=== PATIENT | male | born 1980 | race Caucasian/White ===

== ENCOUNTER 2018-08-22 16:00 | Emergency (ER) | payer OTHER ==
[2018-08-22] MEDS ORDERED: ONDANSETRON 4 MG/2 ML VIAL ONE (16:43)
[2018-08-22 16:44] LABS: Absolute Lymphocytes (CBC) 1.2 K/uL (0.7-4.9); Absolute Monocytes 0.4 K/uL (0.1-1.3); Absolute Neutrophil 3.4 K/uL (1.8-8.0); Basophils % 1.2 % (0-1.3); Hematocrit 43.8 % (39.6-49.0); Lymphocytes % 23.4 % (15.3-44.8); MCH 32.6 pg (27.0-35.0); MCV 90.9 fL (80-100); MPV 11.5 fL (7.6-11.3); Monocytes % 7.5 % (3.3-12.3); RBC Red Blood Cell Count 4.82 M/uL (4.33-5.43)
[2018-08-22 16:49] LABS: Protime INR 1.11
[2018-08-22] MEDS ORDERED: FOLIC ACID 1 MG, MULTIVITAMINS INJ 10 ML, THIAMINE HCL 100 MG in NA CHLORIDE 0.9% 1,000 ML IV ONE (17:00)
[2018-08-22 17:05] LABS: BUN Blood Urea Nitrogen 13 mg/dL (7-18); Bicarbonate 27 mmol/L (21-32); Glucose Level 99 mg/dL (74-106); Potassium 3.9 mmol/L (3.5-5.1); Sodium Level 142 mmol/L (136-145)
[2018-08-22 17:06] LABS: ALT/SGPT 23 U/L (12-78); AST/SGOT 11 U/L (15-37); Albumin 4.5 g/dL (3.4-5.0); Alkaline Phosphatase 62 U/L (45-117); Bilirubin Direct 0.3 mg/dL (0-0.2); Bilirubin Total 1.1 mg/dL (0.2-1.0)
[2018-08-22 17:28] LABS: Barbiturates NEGATIVE (NEGATIVE); Benzodiazepines NEGATIVE (NEGATIVE); Cocaine NEGATIVE (NEGATIVE); METHAMPHETAM NEGATIVE (NEGATIVE); Methadone NEGATIVE (NEGATIVE); Opiates NEGATIVE (NEGATIVE); Phencyclidine NEGATIVE (NEGATIVE); THC Cannibis NEGATIVE (NEGATIVE)
[2018-08-22 17:32] LABS: Urine Blood NEGATIVE (NEG); Urine Glucose NEGATIVE (NEG); Urine Protein NEGATIVE (NEG); Urine Specific Gravity 1.025 (1.005-1.030)
--- NOTE | 2018-08-22 21:29 | EDPHYS ---
Physician Documentation [facility] Name: Jimbo Ridley Age: 37 yrs Sex: Male : 1980 Arrival Date: 08/22/2018 Time: 16:02 Bed 26 Private MD: ED Physician Vick Mcintosh HPI: 08/22 16:25 This 37 yrs old Male presents to ER via Ambulatory with complaints of cp Decreased Appetite, Nausea. 16:25 The patient presents to the emergency department with depression, over unknown cp circumstances. 16:25 Onset: The symptoms/episode began/occurred gradually, since early this year. Past cp psychiatric history: Prior diagnosis: depression, Anorexia, Psychiatric medications include: none, Primary psychiatric physician: the patient does not have a primary psychiatric physician, the patient has not had a prior suicide gesture. Associated signs and symptoms: Pertinent positives; nausea, decreased appetite, Pertinent negatives: abdominal pain, chest pain, hallucinations, headache, homicidal ideation, palpitations, paranoia, substance abuse, suicide ideation, vomiting. Severity of symptoms: in the emergency department the symptoms are unchanged despite home interventions. Historical: - Allergies: 16:05 Bactrim; hb - Home Meds: 16:05 None [Active]; hb - PMHx: 16:05 Anorexia; hb - PSHx: 16:05 None; hb - Immunization history:: Adult Immunizations up to date. - Social history:: Smoking status: Patient/guardian denies using tobacco. - Ebola Screening: : No symptoms or risks identified at this time. ROS: 16:30 Constitutional: Negative for body aches, chills, fever, poor PO intake. cp 16:30 Eyes: Negative for injury, pain, redness, and discharge. cp 16:30 ENT: Negative for drainage from ear(s), ear pain, sore throat, difficulty swallowing, difficulty handling secretions. 16:30 Cardiovascular: Negative for chest pain, edema, palpitations. 16:30 Respiratory: Negative for cough, shortness of breath, wheezing. 16:30 Abdomen/GI: Positive for nausea, Negative for abdominal pain, vomiting, diarrhea, constipation, black/tarry stool, rectal bleeding. 16:30 Neuro: Negative for altered mental status, headache, weakness. 16:30 Psych: Positive for depression, Negative for drug dependence, alcohol dependence, auditory hallucinations, visual hallucinations, suicide gesture, suicidal ideation. 16:30 All other systems are negative. Exam: 16:35 Constitutional: The patient appears in no acute distress, alert, awake, cp non-diaphoretic, non-toxic, well developed, well nourished. 16:35 Head/Face: Normocephalic, atraumatic. cp 16:35 Eyes: Pupils equal round and reactive to light, extra-ocular motions intact. Lids and lashes normal. Conjunctiva and sclera are non-icteric and not injected. Cornea within normal limits. Periorbital areas with no swelling, redness, or edema. ENT: Nares patent. No nasal discharge, no septal abnormalities noted. Tympanic membranes are normal and external auditory canals are clear. Oropharynx with no redness, swelling, or masses, exudates, or evidence of obstruction, uvula midline. Mucous membranes moist. Chest/axilla: Normal chest wall appearance and motion. Nontender with no deformity. No lesions are appreciated. Cardiovascular: Regular rate and rhythm with a normal S1 and S2. No gallops, murmurs, or rubs. Normal PMI, no JVD. No pulse deficits. Respiratory: Lungs have equal breath sounds bilaterally, clear to auscultation and percussion. No rales, rhonchi or wheezes noted. No increased work of breathing, no retractions or nasal flaring. Abdomen/GI: Soft, non-tender, with normal bowel sounds. No distension or tympany. No guarding or rebound. No evidence of tenderness throughout. Skin: Warm, dry with normal turgor. Normal color with no rashes, no lesions, and no evidence of cellulitis. 16:35 Neuro: Orientation: to person, place \T\ time. Mentation: is normal, Cerebellar function: is grossly normal, Motor: moves all fours, strength is normal, Sensation: is normal. 16:35 Psych: Behavior/mood is cooperative, depressed, Affect is flat, Patient has no thoughts/intents to harm self or others. Judgement / Insight is normal. Delusions/hallucinations are not present. 16:55 ECG was reviewed by the Attending Physician. cp Vital Signs: 16:02 BP 114 / 87; Pulse 75; Resp 16; Temp 98.2; Pulse Ox 100% on R/A; Pain 0/10; hb 18:27 BP 107 / 82; Pulse 63; Resp 16; Pulse Ox 99% on R/A; kr2 20:07 BP 102 / 74; Pulse 65; Resp 16; Pulse Ox 100% ; kr2 21:54 BP 112 / 67; Pulse 65; Resp 17; Pulse Ox 100% ; kr2 MDM: 16:02 Patient medically screened. cp 17:00 Differential diagnosis: drug withdrawal. acute psychotic break, depression, psychosis cp secondary to non-compliance. 21:27 ED course: VSS. Patient evaluated by [facility] and felt to be stable for discharge to home with outpatient psych f/u. 21:28 Data reviewed: vital signs, nurses notes, lab test result(s), EKG, and as a result, I cp will discharge patient. 21:28 Counseling: I had a detailed discussion with the patient and/or guardian regarding: the cp historical points, exam findings, and any diagnostic results supporting the discharge/admit diagnosis, lab results, the need for outpatient follow up, for definitive care, a psychiatrist, to return to the emergency department if symptoms worsen or persist or if there are any questions or concerns that arise at home. 08/22 16:22 Order name: Acetaminophen; Complete Time: 17:27 cp 08/22 16:22 Order name: Basic Metabolic Panel 08/22 16:22 Order name: CBC with Diff; Complete Time: 17:27 cp 08/22 17:28 Interpretation: Normal except: PLT 144; MPV 11.5. 08/22 16:22 Order name: ETOH Level; Complete Time: 17:27 cp 08/22 16:22 Order name: Hepatic Function; Complete Time: 17:27 08/22 17:28 Interpretation: Normal except: AST 11; BILIT 1.1; BILID 0.3. 08/22 16:22 Order name: PT-INR; Complete Time: 17:27 cp 08/22 16:22 Order name: Ptt, Activated; Complete Time: 17:27 cp 08/22 16:22 Order name: Salicylate; Complete Time: 17:27 cp 08/22 16:22 Order name: Urine Drug Screen; Complete Time: 17:39 cp 08/22 17:39 Interpretation: Reviewed. 08/22 16:22 Order name: EKG; Complete Time: 16:23 08/22 16:23 Order name: Basic Metabolic Panel; Complete Time: 17:27 EDMS 08/22 17:28 Interpretation: Normal except: CL 108; GFR 84. cp 08/22 16:52 Order name: Urine Dipstick--Ancillary (enter results); Complete Time: 17:39 eb 08/22 16:22 Order name: EKG - Nurse/Tech; Complete Time: 16:54 cp 08/22 16:22 Order name: IV Saline Lock; Complete Time: 16:40 cp 08/22 16:22 Order name: Labs collected and sent; Complete Time: 16:40 cp 08/22 16:22 Order name: Urine Dipstick-Ancillary (obtain specimen); Complete Time: 16:41 cp EC:55 Rate is 58 beats/min. Rhythm is regular. OH interval is normal. QRS interval is normal. cp QT interval is normal. Interpreted by me. Reviewed by me. Administered Medications: Discontinued: Banana Bag - (NS 0.9% 1000 ml, foLIC Acid 1 mg, Thiamine 100 mg, Multivitamin 1 amp) IV at 200 calculated rate once 16:48 Drug: Zofran 4 mg Route: IVP; Site: right antecubital; kr2 17:26 Follow up: Response: No adverse reaction; Nausea is decreased kr2 17:26 Drug: Banana Bag - (NS 0.9% 1000 ml, foLIC Acid 1 mg, Thiamine 100 mg, Multivitamin 1 kr2 amp) Route: IV; Rate: 200 calculated rate; Site: right antecubital; 21:55 Follow up: Response: No adverse reaction; IV Status: Completed infusion kr2 Disposition: 08/23 06:19 Co-signature as Attending Physician, Vick Mcintosh MD. rn Disposition: 08/22/18 21:29 Discharged to Home. Impression: Major depressive disorder, recurrent. - Condition is Stable. - Discharge Instructions: Major Depressive Disorder. - Medication Reconciliation Form, Thank You Letter, Antibiotic Education, Prescription Opioid Use form. - Follow up: Private Physician; When: 1 - 2 days; Reason: Recheck today's complaints. - Problem is an ongoing problem. - Symptoms are unchanged. Signatures: Dispatcher [employer] EDPR Vick Mcintosh MD MD rn Page, Corey, PA PA cp Baxter, Heather, RN RN hb Reaves, Karey, RN RN kr2 Corrections: (The following items were deleted from the chart) 08/22 21:29 21:29 08/22/2018 21:29 Discharged to Home. Impression: Depression. Condition is Stable. cp Forms are Medication Reconciliation Form, Thank You Letter, Antibiotic Education, Prescription Opioid Use. Follow up: Private Physician; When: 1 - 2 days; Reason: Recheck today's complaints. Problem is an ongoing problem. Symptoms are unchanged. cp 21:58 21:29 08/22/2018 21:29 Discharged to Home. Impression: Major depressive disorder, kr2 recurrent. Condition is Stable. Discharge Instructions: Major Depressive Disorder. Forms are Medication Reconciliation Form, Thank You Letter, Antibiotic Education, Prescription Opioid Use. Follow up: Private Physician; When: 1 - 2 days; Reason: Recheck today's complaints. Problem is an ongoing problem. Symptoms are unchanged. cp
--- NOTE | 2018-08-22 21:29 | ER ---
Nurse's Notes [facility] Name: Jimbo Ridley Age: 37 yrs Sex: Male : 1980 Arrival Date: 08/22/2018 Time: 16:02 Bed 26 Private MD: Diagnosis: Major depressive disorder, recurrent Presentation: 08/22 16:02 Presenting complaint: EMS states: Mother called EMS for decreased appetite. Pt reports hb nausea, dry heaves. Hx anorexia. Transition of care: patient was not received from another setting of care. Onset of symptoms was August 22, 2018. Risk Assessment: Do you want to hurt yourself or someone else? Patient reports no desire to harm self or others. Care prior to arrival: None. 16:02 Method Of Arrival: Ambulatory hb 16:02 Acuity: ARIANNE 3 hb 16:49 Initial Sepsis Screen: Does the patient meet any 2 criteria? No. Patient's initial kr2 sepsis screen is negative. Does the patient have a suspected source of infection? No. Patient's initial sepsis screen is negative. Triage Assessment: 16:49 General: Appears in no apparent distress. comfortable, slender, well groomed, Behavior kr2 is calm, cooperative. Pain: Denies pain. Historical: - Allergies: 16:05 Bactrim; hb - Home Meds: 16:05 None [Active]; hb - PMHx: 16:05 Anorexia; hb - PSHx: 16:05 None; hb - Immunization history:: Adult Immunizations up to date. - Social history:: Smoking status: Patient/guardian denies using tobacco. - Ebola Screening: : No symptoms or risks identified at this time. Screenin:06 Abuse screen: Denies threats or abuse. Denies injuries from another. Nutritional hb screening: No deficits noted. Tuberculosis screening: No symptoms or risk factors identified. Fall Risk None identified. Assessment: 16:50 General: Appears in no apparent distress. comfortable, slender, well groomed, Behavior kr2 is calm, cooperative. Pain: Denies pain. Neuro: Level of Consciousness is awake, alert, obeys commands, Oriented to person, place, time, situation, Blade Balancer are equal bilaterally Moves all extremities. Gait is steady, Speech is normal, Facial symmetry appears normal, Pupils are PERRLA, Intact mild tremor noted to bilateral hands. Cardiovascular: Capillary refill < 3 seconds in bilateral fingers Patient's skin is warm and dry. Respiratory: Airway is patent Respiratory effort is even, unlabored, Respiratory pattern is regular, symmetrical. GI: Abdomen is flat, non-distended, Reports anorexia, nausea, Patient currently denies vomiting. : Urine is clear. EENT: Nares are clear bilaterally Oral mucosa is moist. Derm: Skin is intact, with poor turgor Skin is pink, warm \T\ dry. Musculoskeletal: 18:26 Reassessment: Patient appears in no apparent distress at this time. Patient and/or kr2 family updated on plan of care and expected duration. Pain level reassessed. Patient is alert, oriented x 3, equal unlabored respirations, skin warm/dry/pink. Patient denies suicidal or homicidal ideation Patient denies pain at this time. 19:30 Reassessment: Patient appears in no apparent distress at this time. Patient and/or kr2 family updated on plan of care and expected duration. Pain level reassessed. Patient is alert, oriented x 3, equal unlabored respirations, skin warm/dry/pink. Patient denies pain at this time. 20:07 Reassessment: Patient appears in no apparent distress at this time. Patient and/or kr2 family updated on plan of care and expected duration. Pain level reassessed. Patient is alert, oriented x 3, equal unlabored respirations, skin warm/dry/pink. Patient denies pain at this time. 21:00 Reassessment: Patient appears in no apparent distress at this time. Patient and/or kr2 family updated on plan of care and expected duration. Pain level reassessed. Patient is alert, oriented x 3, equal unlabored respirations, skin warm/dry/pink. Game Breeding Farm Manager from [facility] here to evaluate patient. 21:53 Reassessment: Patient appears in no apparent distress at this time. Patient and/or kr2 family updated on plan of care and expected duration. Pain level reassessed. Patient is alert, oriented x 3, equal unlabored respirations, skin warm/dry/pink. Patient denies pain at this time. Vital Signs: 16:02 BP 114 / 87; Pulse 75; Resp 16; Temp 98.2; Pulse Ox 100% on R/A; Pain 0/10; hb 18:27 BP 107 / 82; Pulse 63; Resp 16; Pulse Ox 99% on R/A; kr2 20:07 BP 102 / 74; Pulse 65; Resp 16; Pulse Ox 100% ; kr2 21:54 BP 112 / 67; Pulse 65; Resp 17; Pulse Ox 100% ; kr2 ED Course: 16:02 Patient arrived in ED. hb 16:02 Harris Estrada PA is PHCP. cp 16:02 Vick Mcintosh MD is Attending Physician. cp 16:03 Triage completed. hb 16:03 Arm band placed on right wrist. hb 16:35 Inserted saline lock: 20 gauge in left antecubital area, using aseptic technique. Blood kr2 collected. 16:37 Krista Sultana, RN is Primary Nurse. kr2 16:49 Patient has correct armband on for positive identification. Bed in low position. Call kr2 light in reach. Side rails up X 1. Adult w/ patient. marine habitat resource specialist on. Pulse ox on. NIBP on. Door closed. Warm blanket given. Head of bed elevated. 16:50 Urine collected: clean catch specimen, clear. kr2 16:57 EKG done, by garage door technician. reviewed by Harris STREETER. sm3 17:47 called and spoke with Neelam at the [facility]. She will page out a screener to eb come evaluate the patient. 18:23 Sergio from the [facility] called said she would be here between 1999 and 2044 eb to screen the patient. 18:44 Basic Metabolic Panel Sent. jp3 21:56 No provider procedures requiring assistance completed. IV discontinued, intact, kr2 bleeding controlled, No redness/swelling at site. Pressure dressing applied. Administered Medications: Discontinued: Banana Bag - (NS 0.9% 1000 ml, foLIC Acid 1 mg, Thiamine 100 mg, Multivitamin 1 amp) IV at 200 calculated rate once 16:48 Drug: Zofran 4 mg Route: IVP; Site: right antecubital; kr2 17:26 Follow up: Response: No adverse reaction; Nausea is decreased kr2 17:26 Drug: Banana Bag - (NS 0.9% 1000 ml, foLIC Acid 1 mg, Thiamine 100 mg, Multivitamin 1 kr2 amp) Route: IV; Rate: 200 calculated rate; Site: right antecubital; 21:55 Follow up: Response: No adverse reaction; IV Status: Completed infusion kr2 Outcome: 21:29 Discharge ordered by . cp 21:56 Discharged to home ambulatory, with family. kr2 21:56 Condition: good 21:56 Discharge instructions given to patient, family, Instructed on discharge instructions, follow up and referral plans. Demonstrated understanding of instructions, follow-up care. 21:58 Patient left the ED. kr2 Signatures: Harris Estrada PA PA cp Baxter, Heather, RN RN Krista Sultana RN RN kr2 Ca Ortiz Shakira 3 David Pike jp3 Corrections: (The following items were deleted from the chart) 21:57 18:26 Reassessment: Patient appears in no apparent distress at this time. Patient kr2 and/or family updated on plan of care and expected duration. Pain level reassessed. Patient is alert, oriented x 3, equal unlabored respirations, skin warm/dry/pink. Patient denies pain at this time. kr2
--- NOTE | 2018-08-23 07:30 | EKG ---
Test Date: 2018-08-22 Test Time: 16:50:00 Clothespin Machine Operator: TAMIA MEASUREMENT RESULTS: Intervals: Rate: 58 MT: 184 QRSD: 92 QT: 398 QTc: 390 [place]: P: 40 MT: 184 QRS: 74 T: 56 INTERPRETIVE STATEMENTS: Sinus bradycardia Otherwise normal ECG Compared to ECG 08/25/2011 23:37:14 First degree AV block no longer present Electronically Signed On 08-23-18 07:27:46 CDT by Brett Mcdaniels
== END 2018-08-22 21:58 | disposition home or self-care (01) ==
LOC: ER 16:00
DX: F33.9 Major depressive disorder, recurrent, unspecified (principal); Z88.1 Allergy status to other antibiotic agents
CPT/HCPCS: 36415; 80048; 80076; 80307; 80320; 80329; 81003; 85025; 85610; 85730; 93005; 96365; 96366; 96375; 99284; J2405; J3411; J7030

== ENCOUNTER 2018-09-09 14:24 | Observation (INO) | payer OTHER ==
[2018-09-09] MEDS ORDERED: NA CHLORIDE 0.9% 1,000 ML ONE ×2 (15:32→17:03)
[2018-09-09] MEDS ORDERED: ONDANSETRON 4 MG/2 ML VIAL ONE (15:32)
[2018-09-09 16:04] LABS: Albumin 4.5 g/dL (3.4-5.0); Bilirubin Direct 0.3 mg/dL (0-0.2); Bilirubin Total 1.3 mg/dL (0.2-1.0); Protein, Total 7.1 g/dL (6.4-8.2)
[2018-09-09 16:29] LABS: Magnesium 2.1 mg/dL (1.8-2.4); Phosphorus 3.4 mg/dL (2.5-4.9)
[2018-09-09 16:41] LABS: Absolute Monocytes 0.6 K/uL (0.1-1.3); Absolute Neutrophil 7.2 K/uL (1.8-8.0); Basophils % 0.6 % (0-1.3); Eosinophils % 2.8 % (0-4.4); Hematocrit 46.5 % (39.6-49.0); Lymphocytes % 10.8 % (15.3-44.8); MCH 32.3 pg (27.0-35.0); MCV 91.7 fL (80-100); MPV 11.8 fL (7.6-11.3); Monocytes % 6.8 % (3.3-12.3); RBC Red Blood Cell Count 5.06 M/uL (4.33-5.43)
[2018-09-09 16:53] LABS: Urine Blood NEGATIVE (NEG); Urine Glucose NEGATIVE (NEG); Urine Protein TRACE (NEG); Urine Specific Gravity >1.030 (1.005-1.030)
[2018-09-09 16:54] LABS: Urine White Blood Cell Casts OK
[2018-09-09 16:55] LABS: Blood Morphology Comment NOT SEEN (NOT SEEN); Platelet Estimate ADEQ; Platelets, Giant FEW
--- NOTE | 2018-09-09 16:59 | EDPHYS ---
Physician Documentation [facility] Name: Jimbo Ridley Age: 37 yrs Sex: Male : 1980 Arrival Date: 09/09/2018 Time: 14:32 Bed 19 Private MD: Gee Coleman ED Physician Oli Watts HPI: 09/09 16:21 This 37 yrs old Male presents to ER via Wheelchair with complaints of nausea kb and vomiting. 16:21 The patient presents to the emergency department with nausea, vomiting. Possible kb causes: anorexia. 16:24 Onset: The symptoms/episode began/occurred months ago. The symptoms are aggravated by kb food , The symptoms are alleviated by nothing. Associated signs and symptoms: Pertinent positives: nausea, vomiting, Pertinent negatives: abdominal pain, anorexia, belching, constipation, diarrhea, dysuria, fever, flatulence, GI bleeding, hematuria. Severity of symptoms: At their worst the symptoms were moderate in the emergency department the symptoms are unchanged. The patient has experienced similar episodes in the past. The patient has been recently seen at the [facility] Emergency Department, last month, for similar complaints. Pt has history of anorexia. Reports he has been unable to eat for months. Has been trying to eat solid foods, but is unable to keep them done. Reports he is now weak and unable to walk well. Has been wearing adult briefs because he is unable to get up to the bathroom easily. Was seen by Dr Matos today who consulted with Dr Coleman and was told to come to ER for possible admission. Historical: - Allergies: 14:34 Bactrim; sv - PMHx: 14:34 ANOREXIA; sv - PSHx: 14:34 None; sv - Immunization history:: Adult Immunizations up to date. - Social history:: Smoking status: Patient/guardian denies using tobacco. - Ebola Screening: : No symptoms or risks identified at this time. ROS: 16:24 Constitutional: Negative for fever, chills, and weight loss, ENT: Negative for injury, kb pain, and discharge, Neck: Negative for injury, pain, and swelling, Cardiovascular: Negative for chest pain, palpitations, and edema, Respiratory: Negative for shortness of breath, cough, wheezing, and pleuritic chest pain, Back: Negative for injury and pain, : Negative for injury, bleeding, discharge, and swelling, MS/Extremity: Negative for injury and deformity, Skin: Negative for injury, rash, and discoloration, Neuro: Negative for headache, weakness, numbness, tingling, and seizure. 16:24 Abdomen/GI: Positive for nausea and vomiting, Negative for abdominal pain, diarrhea, constipation, abdominal cramps, abdominal distension, anorexia. Exam: 16:36 Head/Face: Normocephalic, atraumatic. ENT: Nares patent. No nasal discharge, no kb septal abnormalities noted. Tympanic membranes are normal and external auditory canals are clear. Oropharynx with no redness, swelling, or masses, exudates, or evidence of obstruction, uvula midline. Mucous membranes moist. Neck: Trachea midline, no thyromegaly or masses palpated, and no cervical lymphadenopathy. Supple, full range of motion without nuchal rigidity, or vertebral point tenderness. No Meningismus. Chest/axilla: Normal chest wall appearance and motion. Nontender with no deformity. No lesions are appreciated. Cardiovascular: Regular rate and rhythm with a normal S1 and S2. No gallops, murmurs, or rubs. Normal PMI, no JVD. No pulse deficits. Respiratory: Lungs have equal breath sounds bilaterally, clear to auscultation and percussion. No rales, rhonchi or wheezes noted. No increased work of breathing, no retractions or nasal flaring. Abdomen/GI: Soft, non-tender, with normal bowel sounds. No distension or tympany. No guarding or rebound. No evidence of tenderness throughout. Back: No spinal tenderness. No costovertebral tenderness. Full range of motion. Skin: Warm, dry with normal turgor. Normal color with no rashes, no lesions, and no evidence of cellulitis. MS/ Extremity: Pulses equal, no cyanosis. Neurovascular intact. Full, normal range of motion. Neuro: Awake and alert, GCS 15, oriented to person, place, time, and situation. Cranial nerves II-XII grossly intact. Motor strength 5/5 in all extremities. Sensory grossly intact. Cerebellar exam normal. Normal gait. 16:36 Constitutional: The patient appears alert, awake, emaciated. Vital Signs: 14:34 BP 102 / 86; Pulse 86; Resp 16; Temp 99.2; Pulse Ox 99% ; Weight 63.96 kg; Height 6 ft. sv 1 in. (185.42 cm); Pain 0/10; 15:52 BP 103 / 92; Pulse 71; Resp 17; Pulse Ox 99% on R/A; tw2 16:50 BP 101 / 71; Pulse 64; Resp 17; Pulse Ox 99% on R/A; tw2 17:53 BP 103 / 76; Pulse 74; Resp 17; Pulse Ox 98% on R/A; tw2 18:38 BP 101 / 74; Pulse 73; Resp 17; Pulse Ox 98% on R/A; tw2 19:30 BP 101 / 69; Pulse 67; Resp 19 S; Temp 98.8(O); Pulse Ox 97% on R/A; cc3 14:34 Body Mass Index 18.60 (63.96 kg, 185.42 cm) sv MDM: 14:58 Patient medically screened. kb 16:36 Data reviewed: vital signs, nurses notes. Data interpreted: Pulse oximetry: on room air kb is 99 %. Interpretation: normal. 16:57 Counseling: I had a detailed discussion with the patient and/or guardian regarding: the kb historical points, exam findings, and any diagnostic results supporting the discharge/admit diagnosis, lab results, the need for further work-up and treatment in the hospital. Physician consultation: Gee Coleman MD was contacted at 16:58, regarding admission, to the medical/surgical unit. patient's condition, and will see patient in inpatient room. 09/09 15:06 Order name: Basic Metabolic Panel; Complete Time: 16:07 kb 09/09 15:06 Order name: CBC with Diff; Complete Time: 16:56 kb 09/09 15:06 Order name: Hepatic Function; Complete Time: 16:07 kb 09/09 15:06 Order name: Lipase; Complete Time: 16:07 kb 09/09 15:26 Order name: Magnesium; Complete Time: 16:32 kb 09/09 15:26 Order name: Phosphorus; Complete Time: 16:32 kb 09/09 16:44 Order name: CBC Smear Scan; Complete Time: 16:56 EDMS 09/09 16:46 Order name: Urine Dipstick--Ancillary (enter results); Complete Time: 16:54 bd 09/09 16:53 Order name: Folic Acid,Serum (folate); Complete Time: 17:54 kb 09/09 16:53 Order name: B12; Complete Time: 17:54 kb 09/09 16:53 Order name: TSH; Complete Time: 17:54 kb 09/09 15:06 Order name: IV Saline Lock; Complete Time: 15:51 kb 09/09 15:06 Order name: Labs collected and sent; Complete Time: 15:51 kb 09/09 16:08 Order name: Urine Dipstick-Ancillary (obtain specimen); Complete Time: 16:49 kb Administered Medications: 15:30 Drug: Zofran 4 mg Route: IVP; Site: right antecubital; tw2 16:49 Follow up: Response: No adverse reaction; Nausea is decreased tw2 15:32 Drug: NS 0.9% 1000 ml Route: IV; Rate: 1000 ml; Site: right antecubital; tw2 16:10 Follow up: Response: No adverse reaction; IV Status: Completed infusion; IV Intake: tw2 1000ml 17:02 Drug: NS 0.9% 1000 ml Route: IV; Rate: 125 ml/hr; Site: right antecubital; tw2 19:00 Follow up: IV Status: Infusion continued upon admission tw2 Disposition: 18:49 Co-signature as Attending Physician, Oli Watts MD available for consultation at ps1 all times. . Disposition: 09/09/18 16:58 Hospitalization ordered by Gee Coleman for Observation. Preliminary diagnosis are Dehydration, Weakness. - Bed requested for Telemetry/MedSurg (observation). - Status is Observation. cc3 - Condition is Stable. - Problem is an ongoing problem. - Symptoms are unchanged. UTI on Admission? No Signatures: Dispatcher [employer] EDIA Apple Ortiz, JOSE-Sergio METAL TEMPLATE MAKER-Khadijah Hall RN Marybeth Villagomez RN RN dw Wise, Tara, RN RN tw2 Oli Watts MD MD [facility] Chelsey Day cc3 Corrections: (The following items were deleted from the chart) 17:47 16:58 Hospitalization Ordered by Gee Coleman MD for Observation. Preliminary diagnosis dw is Dehydration; Weakness. Bed requested for Telemetry/MedSurg (observation). Status is Observation. Condition is Stable. Problem is an ongoing problem. Symptoms are unchanged. UTI on Admission? No. kb 20:02 17:47 09/09/2018 16:58 Hospitalization Ordered by Gee Coleman MD for Observation. cc3 Preliminary diagnosis is Dehydration; Weakness. Bed requested for Telemetry/MedSurg (observation). Status is Observation. Condition is Stable. Problem is an ongoing problem. Symptoms are unchanged. UTI on Admission? No. dw
--- NOTE | 2018-09-09 16:59 | ER ---
Nurse's Notes [facility] Name: Jimbo Ridley Age: 37 yrs Sex: Male : 1980 Arrival Date: 09/09/2018 Time: 14:32 Bed 19 Private MD: Gee Coleman Diagnosis: Dehydration;Weakness Presentation: 09/09 14:32 Presenting complaint: Patient states: not able to tolerate food or fluids x several sv weeks. "They think I'm dehydrated.". Transition of care: patient was not received from another setting of care. Onset of symptoms is unknown. Care prior to arrival: None. 14:32 Method Of Arrival: Wheelchair sv 14:32 Acuity: ARIANNE 3 sv 14:42 Risk Assessment: Do you want to hurt yourself or someone else? Patient reports no tw2 desire to harm self or others. Initial Sepsis Screen: Does the patient meet any 2 criteria? No. Patient's initial sepsis screen is negative. Does the patient have a suspected source of infection? No. Patient's initial sepsis screen is negative. Triage Assessment: 14:35 General: Appears uncomfortable, ill, slender, malnourished, Behavior is calm, sv cooperative. Pain: Denies pain. Neuro: Level of Consciousness is awake, alert, obeys commands, Oriented to person, place, time, situation, Moves all extremities. Full function. Respiratory: Respiratory effort is even, unlabored, Respiratory pattern is regular, symmetrical. Historical: - Allergies: 14:34 Bactrim; sv - PMHx: 14:34 ANOREXIA; sv - PSHx: 14:34 None; sv - Immunization history:: Adult Immunizations up to date. - Social history:: Smoking status: Patient/guardian denies using tobacco. - Ebola Screening: : No symptoms or risks identified at this time. Screenin:42 Abuse screen: Denies threats or abuse. Nutritional screening: Has had N/V for 3 or more tw2 days. Tuberculosis screening: No symptoms or risk factors identified. Fall Risk None identified. Assessment: 14:40 General: Appears well groomed, emaciated, Behavior is calm, cooperative, appropriate tw2 for age. Neuro: Level of Consciousness is awake, alert, obeys commands, Oriented to person, place, time, situation. Cardiovascular: Heart tones S1 S2 Patient's skin is warm and dry. Respiratory: Airway is patent Respiratory effort is even, unlabored, Respiratory pattern is regular, symmetrical, Breath sounds are clear bilaterally. GI: Abdomen is flat, Bowel sounds present X 4 quads. Reports intolerance of fluids, intolerance of food, nausea. : No signs and/or symptoms were reported regarding the genitourinary system. EENT: No signs and/or symptoms were reported regarding the EENT system. EENT: Eyes redness noted to b/l eyes. Derm: excoriation noted to b/l dorsum of fingers. Musculoskeletal: Range of motion: intact in all extremities. 15:52 Reassessment: Patient appears in no apparent distress at this time. No changes from tw2 previously documented assessment. Patient and/or family updated on plan of care and expected duration. Pain level reassessed. Patient is alert, oriented x 3, equal unlabored respirations, skin warm/dry/pink. 16:15 Reassessment: pts mother states "he has an eating disorder and has been starving tw2 himself, and he hasnt been wanting to eat, but now he says he wants to eat but he is just so nauseous", provider notified and conversation with JOSE Man at nurses station, Dr. Coleman is PCP. 16:50 Reassessment: Patient appears in no apparent distress at this time. No changes from tw2 previously documented assessment. Patient and/or family updated on plan of care and expected duration. Pain level reassessed. Patient is alert, oriented x 3, equal unlabored respirations, skin warm/dry/pink. pt ambulated behind w/c around nurses station at this time states "i just feel weak", provider notified mother states once pt is in room "he is even wearing a depends, we have to help bathe him". 18:38 Reassessment: Patient appears in no apparent distress at this time. No changes from tw2 previously documented assessment. Patient and/or family updated on plan of care and expected duration. Pain level reassessed. Patient is alert, oriented x 3, equal unlabored respirations, skin warm/dry/pink. 19:15 Reassessment: Patient appears in no apparent distress at this time. Patient and/or cc3 family updated on plan of care and expected duration. Pain level reassessed. Patient is alert, oriented x 3, equal unlabored respirations, skin warm/dry/pink. Received this male patient for admission in room 222 as a case of Dehydration. With IV cannula gauge 20 at the right ACV with ongoing IVF of NS 1liter at 125 mL/hr infusing well. 19:50 Reassessment: Report handed over to RN Joaquina Plummer for continuity of care and was told cc3 that they will change the patient's room to room 220 as per their charge nurse Gaby. 20:00 Reassessment: Patient appears in no apparent distress at this time. Patient and/or cc3 family updated on plan of care and expected duration. Pain level reassessed. Patient is alert, oriented x 3, equal unlabored respirations, skin warm/dry/pink. Patient left ER vitally stable by wheelchair escorted by robotics testing technician Jewish and his mother. Vital Signs: 14:34 BP 102 / 86; Pulse 86; Resp 16; Temp 99.2; Pulse Ox 99% ; Weight 63.96 kg; Height 6 ft. sv 1 in. (185.42 cm); Pain 0/10; 15:52 BP 103 / 92; Pulse 71; Resp 17; Pulse Ox 99% on R/A; tw2 16:50 BP 101 / 71; Pulse 64; Resp 17; Pulse Ox 99% on R/A; tw2 17:53 BP 103 / 76; Pulse 74; Resp 17; Pulse Ox 98% on R/A; tw2 18:38 BP 101 / 74; Pulse 73; Resp 17; Pulse Ox 98% on R/A; tw2 19:30 BP 101 / 69; Pulse 67; Resp 19 S; Temp 98.8(O); Pulse Ox 97% on R/A; cc3 14:34 Body Mass Index 18.60 (63.96 kg, 185.42 cm) sv ED Course: 14:32 Patient arrived in ED. sb2 14:32 Gee Coleman MD is Private Physician. sb2 14:33 Triage completed. sv 14:35 Arm band placed on. sv 14:41 Malena Salmeron, RN is Primary Nurse. tw2 14:42 Bed in low position. Call light in reach. Adult w/ patient. equipment monitor phototypesetting on. Pulse tw2 ox on. NIBP on. 14:57 Apple Ortiz FNP-C is PHCP. kb 14:57 Oli Watts MD is Attending Physician. kb 15:30 Inserted saline lock: 20 gauge in right antecubital area, using aseptic technique. tw2 Blood collected. 16:58 Gee Coleman MD is Hospitalizing Provider. kb 18:59 Report given to Deonte Barbosa. tw2 19:50 No provider procedures requiring assistance completed. Patient admitted, IV remains in cc3 place. Administered Medications: 15:30 Drug: Zofran 4 mg Route: IVP; Site: right antecubital; tw2 16:49 Follow up: Response: No adverse reaction; Nausea is decreased tw2 15:32 Drug: NS 0.9% 1000 ml Route: IV; Rate: 1000 ml; Site: right antecubital; tw2 16:10 Follow up: Response: No adverse reaction; IV Status: Completed infusion; IV Intake: tw2 1000ml 17:02 Drug: NS 0.9% 1000 ml Route: IV; Rate: 125 ml/hr; Site: right antecubital; tw2 19:00 Follow up: IV Status: Infusion continued upon admission tw2 Intake: 16:10 IV: 1000ml; Total: 1000ml. tw2 Outcome: 16:58 Decision to Hospitalize by Provider. kb 19:50 Admitted to Med/surg accompanied by tech, family with patient, via wheelchair, room cc3 220, with chart, Report called to DEONTE Plummer 19:50 Condition: stable 19:50 Instructed on the need for admit, Demonstrated understanding of instructions. 20:02 Patient left the ED. cc3 Signatures: Apple Ortiz, CLAY GARCIA-Khadijah Hall RN RN sv Wise, Tara, RN RN 2 Candice Hunt Chelsey Flores cc3
[2018-09-09 17:43] LABS: Folic Acid, (Folate) 18.8 ng/mL (3.1-17.5); Thyroid Stimulating Hormone 1.8 uIU/mL (0.360-3.740)
[2018-09-09] MEDS ORDERED: SODIUM CHLORIDE 0.9% 10ML INJ IV PRN (20:52)
[2018-09-09] MEDS ORDERED: ONDANSETRON 4 MG/2 ML VIAL IV PRN (21:19)
[2018-09-09] MEDS ORDERED: ACETAMINOPHEN 500 MG TAB PO PRN (21:19)
[2018-09-09] MEDS: PANTOPRAZOLE 40 MG INJ IVP SCH (22:35)
[2018-09-09] MEDS: NA CHLORIDE 0.9% 1,000 ML IV SCH (22:35)
[2018-09-10] MEDS: NA CHLORIDE 0.9% 1,000 ML IV SCH ×3 (04:29→20:52)
[2018-09-10 05:56] LABS: Potassium 4.4 mmol/L (3.5-5.1)
[2018-09-10 06:17] LABS: Absolute Lymphocytes (CBC) 1.3 K/uL (0.7-4.9); Absolute Monocytes 0.6 K/uL (0.1-1.3); Absolute Neutrophil 4.1 K/uL (1.8-8.0); Basophils % 1.2 % (0-1.3); Eosinophils % 6.3 % (0-4.4); Hematocrit 37.5 % (39.6-49.0); Lymphocytes % 20.3 % (15.3-44.8); MCV 91.5 fL (80-100); MPV 11.6 fL (7.6-11.3); Monocytes % 8.9 % (3.3-12.3)
--- NOTE | 2018-09-10 08:30 | RAD REPORT ---
EXAM DESCRIPTION: US - Abdomen Exam Complete - 09/10/2018 7:32 am CLINICAL HISTORY: Abdominal pain/ vomiting COMPARISON: 2011 FINDINGS: The liver has a normal echotexture. A gallstone is not seen. The gallbladder wall is not thickened. The biliary tree is normal caliber. The pancreas is normal in size and echotexture The right kidney measures 10 centimeters with a normal echotexture. The left kidney measures 11 centimeters with a normal echotexture. The spleen measures 9 centimeters. The abdominal aorta and inferior vena cava appear unremarkable IMPRESSION: Unremarkable exam
[2018-09-10] MEDS: PANTOPRAZOLE 40 MG INJ IVP SCH ×2 (09:54→20:52)
--- NOTE | 2018-09-10 15:15 | RAD REPORT ---
EXAM DESCRIPTION: NM - Hepatobiliary System Imagin - 09/10/2018 3:09 pm CLINICAL HISTORY: nausea, vomiting COMPARISON: Abdomen Exam Complete dated 09/10/2018 TECHNIQUE: The patient was administered 6.5 mCi Tc99m Choletec. Imaging of the right upper quadrant was performed initially for up to 60 minutes. Gallbladder ejection fraction determination was then performed utilizing 8 ounce of ice cream. FINDINGS: Normal hepatic uptake and excretion with appropriate clearance of background blood pool ac tivity. Normal visualization of biliary and small bowel activity. Gallbladder visualizes within normal time limits. The calculated ejection fraction is 43% (normal gre ater than 35%). 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 No delay in visualization of the gallb ladder, biliary tree, or duodenum. Ejection fraction is 43% (normal greater than 35%). Subjective patient pain assessment as detailed above.
--- NOTE | 2018-09-10 23:53 | PN ---
Date of Progress Note: 09/10/2018 Subjective: The patient was seen this morning for followup. His father was present with him at beds rebecca. He feels better since he has been getting IV fluid hydration. No new complaints, problems repo rted overnight. Objective: Vital Signs: Reviewed. HEENT: Unremarkable. Lungs: Clear to auscultation. Heart: Sounds normal. Abdomen: Soft. Bowel sounds normal. No guarding, rigidity, tenderness, distention. Extremity: No leg edema. Laboratory Data: White count today 6.4, hemoglobin 13.5, and platelet count 130. Sodium 143, potass ium 4.4, chloride 110, bicarb 27, BUN 19, creatinine 1.0, glucose 81. Abdominal ultrasound done toda y was unremarkable and subsequently we did HIDA scan, which came back negative as well. Impression: 1.Volume depletion. 2.Anorexia. 3.Depression. 4.Eating disorder. Plan: We will go ahead and continue IV fluid, IV Protonix for gastroesophageal reflux disease. I wi ll see him tomorrow for followup. Possible discharge to go home tomorrow. FLIP/MODL Voice ID: [id number] Report ID: [id number]
--- NOTE | 2018-09-11 04:33 | HP ---
Date of Admission: 09/09/2018 Chief Complaint: Not eating and nausea, vomiting. History Of Present Illness: This is a 37-year-old male patient with history of depression and eating disorder for long time who refuses to see any psychiatrist, refuses to take any medications, but medina s not have any suicidal or homicidal ideation and has not seen me in last several years. Has not see n his psychiatrist in many years. For last 2 months, his condition is deteriorating where he actuall y is not eating, drinking anything. He has lost almost 30 to 40 pounds this year and he believes mos t of that weight loss has happened in last 2 months when he stopped eating, drinking. Every now and then he eats little bit, drinks little bit, but otherwise most of the time the patient and his family reports that he does not eat or drink much at all. He came into emergency room about 2 to 3 weeks a go, got some IV fluid hydration, felt better and went home. He felt better for 2-3 days after that I V fluid hydration, and after that, his condition started to deteriorate again. Yesterday, I was cont acted by the patient's family friend who is a physician and he was concerned about what is going on a nd he was advised to send the patient to the emergency room. After the patient came into ER, he was admitted to hospital. I saw him in emergency room. His mother was present with him at bedside. Onc e again, patient denies any suicidal or homicidal ideation. The patient does not appear in any distr ess. In fact, he was appearing happy and smiling and informed me that he wants to leave, and he want s to eat, but he continues to have this nausea, vomiting problem. The patient says that every time h e tries to eat or drink something, he has pain with swallowing, including pain with swallowing of war elder. He has some acid reflux problem from time to time, but in last 2 months, it is lot worse. He d enies any choking spells. Denies any abdominal pain. No blood in stool. No constipation, diarrhea. No hematemesis. No fever, chills. After he was evaluated in ER, he was admitted to hospital. Allergies: TO BACTRIM. Medications: He does not take any medications at home. Review of Systems: GI: As mentioned above. Constitutional: As mentioned above. Psychiatric: As mentioned above. All other systems reviewed and negative. Past Surgical History: Negative. Past Medical History: Significant for allergic rhinitis, hyperlipidemia, and depression problem with eating disorders. Family History: Significant for hypertension. Significant for hyperlipidemia. Social History: Negative for smoking and alcohol use. Physical Examination: Vital Signs: Last vital signs today, temperature 98.4, pulse 53, respiratory rate 16, blood pressure 92/58, height 6 feet 1 inch, weight 133 pounds. General: The patient appears cachectic, not in any distress. Awake, alert, oriented x3. HEENT: Head atraumatic, normocephalic. Conjunctivae nonerythematous. Sclerae white. Mouth, no thr ush or edema noted. Ears/Nose, no mass, lesion, discharge noted. Neck: Supple. No JVD, lymph nodes, bruit, thyromegaly noted. Lungs: Bilateral good equal air entry. Clear to auscultation. No rhonchi. No rales. Heart: Normal heart sounds, no murmur or gallop. Abdomen: Soft, bowel sounds normal. No guarding, rigidity, tenderness, mass, hepatosplenomegaly, dis tention, or bruit noted. Extremities: No leg edema. No calf tenderness. Skin: No rash, ulcer, cellulitis. Lymphatics: No lymph node enlargement in neck, supraclavicular, infraclavicular region. Neuro: No focal neurological deficit. Chest: Unremarkable. External Genitalia: Deferred. Rectal: Deferred. Laboratory Data: White count 9.1, hemoglobin 16.3, platelets 151. Sodium 140, potassium 4, chloride 104, bicarb 28, BUN 21, creatinine 1.10, glucose 89, total bilirubin 1.3, direct bilirubin 0.3, SGOT 11, SGPT 17, albumin 4.5, B12 835, folic acid 18.8, TSH 1.8. Impression: 1.Anorexia. 2.Volume depletion. 3.Depression with eating disorder. Plan: We will admit patient to hospital for further evaluation and management of this problem. IV f luid was started in emergency room. We will continue that. Tomorrow morning, we will go ahead and d o abdominal ultrasound and consider HIDA scan. We need to rule out any possibility of gallbladder di sease causing the symptoms. We will also start him on IV Protonix and I will see him tomorrow for miguel lopez. The patient also reports having history of migraine with frequent migraines lately, and I garza ve asked him to consider some medications for prevention. He is willing to try it and will consider amitriptyline for that. I will see him tomorrow for followup and we will discuss with him after the workup is completed to see if we can convince him to follow up with a psychiatrist, but so far he has been reluctant to see psychiatrist and reluctant to take any medications for his depression problem. FLIP/FERNANDEZ Voice ID: [id number]
--- NOTE | 2018-09-11 09:14 | RAD REPORT ---
EXAM DESCRIPTION: CT - Head Brain Wo Cont - 09/11/2018 8:47 am CLINICAL HISTORY: headache, nausea, vomiting COMPARISON: HEAD BRAIN W O CONTRAST dated 08/26/2011 TECHNIQUE: All CT scans are performed using dose optimization technique as appropriate and may inclu de automated exposure control or mA/KV adjustment according to patient size. FINDINGS: No intracranial hemorrhage, hydrocephalus or extra-axial fluid collection.No areas of brai n edema or evidence of midline shift. The paranasal sinuses and mastoids are clear. The calvarium is intact. IMPRESSION: No acute intracranial abnormality.
[2018-09-11] MEDS: PANTOPRAZOLE 40 MG INJ IVP SCH (09:33)
--- NOTE | 2018-09-12 05:40 | DS ---
Date of Discharge: 09/11/2018 Disposition: Discharged to go home. Physical Examination: HEENT: Unremarkable. Lungs: Clear to auscultation. Heart: Sounds normal. Abdomen: Soft. Bowel sounds normal. No guarding, rigidity, tenderness, or distention. Extremities: No leg edema. Discharge Medications/instructions: 1.Pantoprazole 40 mg p.o. daily in morning 30 minutes before breakfast. 2.Amitriptyline 10 mg at bedtime. 3.Follow up at my office next week on 09/18/2018 at 8 a.m. Final Diagnoses: 1.Volume depletion. 2.Anorexia. 3.Depression with eating disorder. Hospital Course: This is a 37-year-old male patient who was admitted to the hospital with nausea, vo miting, not eating, and significant weight loss. Please see dictated H and P for more information. The patient was evaluated in the ER. After he was evaluated, he was admitted to the hospital. He garza d some volume depletion. IV fluid was started, and he started feeling better after IV fluid was give n. He also has some significant gastroesophageal reflux disease, and IV Protonix was started. He garza s reported significant improvement in his heartburn-indigestion type of problem. Yesterday, he had m uch better appetite, and he was able to eat well without any difficulty. He does not have any dyspha jake. Abdominal ultrasound was done, and that showed an unremarkable ultrasound, normal gallbladder. HIDA scan was done yesterday, which came back normal as well. Today, we did CAT scan of the head wi thout contrast, which came back unremarkable. At this point, we believe that his ongoing problem carol[place] t he has with nausea, vomiting, not eating, and significant weight loss is all likely due to underlyi ng depression with eating disorder and anorexia. I did talk to him about all these today. I explain ed it to him, importance of seeing psychiatrist regularly. He used to see Dr. Arita several years ag o, and he actually stopped seeing him. I talked to him today. He is willing to see counselor; and a fter I talked to him for a while, he was willing to see psychiatrist as well, but he is very firm in his opinion and believed that he does not want to take any medication for depression. At least, I wa s able to convince him to see psychiatrist. So, what we will do is when I see him on outpatient basi s, we will go ahead and refer him to out-of-town psychiatrist. He is willing pantoprazole, and I exp lained it to him how to take that medication. Also, he has significant migraine problem, which also is contributing to his nausea problem, and I did explain it to him about trying medication like amitr iptyline at bedtime, and he is willing to try that for prevention of migraine. With his significant depression problem and eating disorder, he does not have any suicidal or homicidal ideation. FLIP/MODL Voice ID: [id number] Report ID: [id number]
== END 2018-09-11 10:10 | disposition home or self-care (01) ==
LOC: ER 14:24 → ERHOLD 17:19 → 2ND 19:55
PROVIDERS: ADMIT Internal Medicine; ATTEND Internal Medicine
DX: E86.9 Volume depletion, unspecified (principal); R63.0 Anorexia; Z68.1 Body mass index [BMI] 19.9 or less, adult; F32.9 Major depressive disorder, single episode, unspecified; F50.9 Eating disorder, unspecified
CPT/HCPCS: 36415; 70450; 76700; 78226; 80048; 80076; 81003; 82607; 82746; 83690; 83735; 84100; 84443; 85025; 96361; 96374; 99285; A9537; C9113; G0378; J2405; J7030

== ENCOUNTER 2018-09-16 08:51 | Emergency (ER) | payer OTHER ==
[2018-09-16] MEDS ORDERED: THIAMINE 200 MG/2 ML INJ ONE (09:45)
[2018-09-16] MEDS ORDERED: NA CHLORIDE 0.9% 1,000 ML ONE (09:45)
[2018-09-16] MEDS ORDERED: D5 0.45 NS 1,000 ML IV ONE (09:46)
[2018-09-16 09:57] LABS: Absolute Monocytes 0.4 K/uL (0.1-1.3); Absolute Neutrophil 7.4 K/uL (1.8-8.0); Basophils % 0.8 % (0-1.3); Eosinophils % 5.8 % (0-4.4); Hematocrit 47.4 % (39.6-49.0); Lymphocytes % 10.5 % (15.3-44.8); MCH 32.4 pg (27.0-35.0); MCV 91.8 fL (80-100); MPV 10.9 fL (7.6-11.3); Monocytes % 3.8 % (3.3-12.3); RBC Red Blood Cell Count 5.17 M/uL (4.33-5.43)
[2018-09-16 10:00] LABS: Protime INR 1.19
[2018-09-16 10:18] LABS: ALT/SGPT 20 U/L (12-78); AST/SGOT 9 U/L (15-37); Albumin 4.5 g/dL (3.4-5.0); Alkaline Phosphatase 66 U/L (45-117); BUN Blood Urea Nitrogen 22 mg/dL (7-18); Bicarbonate 26 mmol/L (21-32); Bilirubin Direct 0.3 mg/dL (0-0.2); Bilirubin Total 1.3 mg/dL (0.2-1.0); Glucose Level 82 mg/dL (74-106); Lipase 231 U/L (73-393); Magnesium 2.3 mg/dL (1.8-2.4); NT PRO-BNP 20 pg/mL (<125); Protein, Total 7.5 g/dL (6.4-8.2); Sodium Level 142 mmol/L (136-145); Troponin (Emerg Dept Use Only) < 0.02 ng/mL (0.0-0.045)
--- NOTE | 2018-09-16 11:13 | RAD REPORT ---
EXAM DESCRIPTION: MRI - Brain Wo Cont - 09/16/2018 10:46 am CLINICAL HISTORY: DIZZINESS Drowsiness COMPARISON: Head Brain Wo Cont dated 09/11/2018 TECHNIQUE: Multi-sequence, multiplanar MR imaging of the brain was performed without contrast. FINDINGS: No intracranial hemorrhage, hydrocephalus or extra-axial fluid collections. No edema or sh ift of midline structures. No findings to suspect brain mass. DWI is negative for acute CVA. Midline structures are normally formed. Mastoid air cells and paranasal sinuses are clear. IMPRESSION: No acute or concerning intracranial abnormalities.
--- NOTE | 2018-09-16 11:17 | RAD REPORT ---
EXAM DESCRIPTION: RAD - Chest Single View - 09/16/2018 11:11 am CLINICAL HISTORY: COUGH Chest pain. COMPARISON: CHEST PA AND LAT 2 VIEW dated 02/13/2012 FINDINGS: Portable technique limits examination quality. The lungs are grossly clear. The heart is normal in size. No displaced fractures. IMPRESSION: No acute intrathoracic process suspected.
[2018-09-16 12:21] LABS: Barbiturates NEGATIVE (NEGATIVE); Benzodiazepines NEGATIVE (NEGATIVE); Cocaine NEGATIVE (NEGATIVE); METHAMPHETAM NEGATIVE (NEGATIVE); Methadone NEGATIVE (NEGATIVE); Opiates NEGATIVE (NEGATIVE); Phencyclidine NEGATIVE (NEGATIVE); THC Cannibis NEGATIVE (NEGATIVE)
[2018-09-16 12:44] LABS: Urine Blood NEGATIVE (NEG); Urine Glucose NEGATIVE (NEG); Urine Protein NEGATIVE (NEG); Urine Specific Gravity >1.030 (1.005-1.030)
--- NOTE | 2018-09-16 13:30 | EDPHYS ---
Physician Documentation [facility] Name: Jimbo Ridley Age: 37 yrs Sex: Male : 1980 Arrival Date: 09/16/2018 Time: 08:55 Bed 14 Private MD: Gee Colmean ED Physician Harris Asher HPI: 09/16 13:23 This 37 yrs old Male presents to ER via Wheelchair with complaints of karol Decreased Appetite. 13:23 The patient presents with abdominal pain. Onset: The symptoms/episode began/occurred 30 karol day(s) ago. The patient's problem is reported as altered mental status, dysphasia, slow speech, expressive aphasia. Onset: The symptoms/episode began/occurred 1 month(s) ago. Duration: The episode is continuous. Context: the episode(s) was witnessed, by family. The symptoms are alleviated by nothing. The symptoms are aggravated by nothing. The patient presents with decreased mental status, decreased responsiveness, dysphasia, trouble concentrating. Possible causes: unknown, depression. Historical: - Allergies: 09:01 Bactrim; sv - PMHx: 09: ANOREXIA; sv - PSHx: 09:01 None; sv - Immunization history:: Adult Immunizations up to date. - Social history:: Smoking status: Patient/guardian denies using tobacco. - Ebola Screening: : No symptoms or risks identified at this time. - Family history:: not pertinent. ROS: 13:23 Constitutional: Negative for fever, chills, and weight loss, Eyes: Negative for injury, karol pain, redness, and discharge, ENT: Negative for injury, pain, and discharge, Neck: Negative for injury, pain, and swelling, Cardiovascular: Negative for chest pain, palpitations, and edema, Respiratory: Negative for shortness of breath, cough, wheezing, and pleuritic chest pain, Back: Negative for injury and pain, : Negative for injury, bleeding, discharge, and swelling, MS/Extremity: Negative for injury and deformity, Skin: Negative for injury, rash, and discoloration, Psych: Negative for depression, anxiety, suicide ideation, homicidal ideation, and hallucinations, Allergy/Immunology: Negative for hives, rash, and allergies, Endocrine: Negative for neck swelling, polydipsia, polyuria, polyphagia, and marked weight changes, Hematologic/Lymphatic: Negative for swollen nodes, abnormal bleeding, and unusual bruising. 13:23 Abdomen/GI: Positive for abdominal pain, abdominal cramps, anorexia. 13:23 Neuro: Positive for altered mental status, speech changes, weakness. 13:23 Psych: Positive for depression. Exam: 13:23 Constitutional: This is a well developed, well nourished patient who is awake, alert, karol and in no acute distress. Head/Face: Normocephalic, atraumatic. Eyes: Pupils equal round and reactive to light, extra-ocular motions intact. Lids and lashes normal. Conjunctiva and sclera are non-icteric and not injected. Cornea within normal limits. Periorbital areas with no swelling, redness, or edema. ENT: Nares patent. No nasal discharge, no septal abnormalities noted. Tympanic membranes are normal and external auditory canals are clear. Oropharynx with no redness, swelling, or masses, exudates, or evidence of obstruction, uvula midline. Mucous membranes moist. Neck: Trachea midline, no thyromegaly or masses palpated, and no cervical lymphadenopathy. Supple, full range of motion without nuchal rigidity, or vertebral point tenderness. No Meningismus. Chest/axilla: Normal chest wall appearance and motion. Nontender with no deformity. No lesions are appreciated. Cardiovascular: Regular rate and rhythm with a normal S1 and S2. No gallops, murmurs, or rubs. Normal PMI, no JVD. No pulse deficits. Respiratory: Lungs have equal breath sounds bilaterally, clear to auscultation and percussion. No rales, rhonchi or wheezes noted. No increased work of breathing, no retractions or nasal flaring. Abdomen/GI: Soft, non-tender, with normal bowel sounds. No distension or tympany. No guarding or rebound. No evidence of tenderness throughout. Back: No spinal tenderness. No costovertebral tenderness. Full range of motion. Male : Normal genitalia with no discharge or lesions. Skin: Warm, dry with normal turgor. Normal color with no rashes, no lesions, and no evidence of cellulitis. MS/ Extremity: Pulses equal, no cyanosis. Neurovascular intact. Full, normal range of motion. Psych: Awake, alert, with orientation to person, place and time. Behavior, mood, and affect are within normal limits. 13:23 Neuro: Orientation: unable to test, Mentation: is normal, appropriate for stated age, no acute changes, Memory: is normal, Cranial nerves: grossly normal, is grossly normal based on the patient's age, no acute changes, Cerebellar function: is grossly normal based on the patient's age, no acute changes, Motor: Sensation: no obvious gross deficits, appropriate no acute changes, Gait: not tested. Deep tendon reflexes are 2+ (normal) in the bilateral brachioradialis, bicep, tricep and patellar and Achilles tendons, Babinski testing is normal, seizure activity. 13:54 Radiologist reports: neg [facility] Vital Signs: 09:01 BP 110 / 91; Pulse 88; Resp 16; Temp 97.1; Pulse Ox 100% ; Weight 57.61 kg; Pain 0/10; sv 09:09 BP 112 / 86; Pulse 84; Resp 18; Pulse Ox 99% on R/A; hj 10:10 BP 113 / 84; Pulse 80; Resp 18; Pulse Ox 100% on R/A; 11:12 BP 109 / 85; Pulse 75; Resp 18; Pulse Ox 100% on R/A; 11:59 BP 108 / 74; Pulse 84; Resp 18; Pulse Ox 98% on R/A; 12:22 BP 115 / 73; Pulse 70; Resp 18; Pulse Ox 100% on R/A; 13:02 BP 104 / 81; Pulse 83; Resp 18; Pulse Ox 100% on R/A; 13:30 BP 107 / 82; Pulse 78; Resp 18; Pulse Ox 100% on R/A; 14:14 BP 105 / 79; Pulse 103; Resp 18; Pulse Ox 100% on R/A; 15:34 BP 105 / 83; Pulse 70; Resp 18; Pulse Ox 100% on R/A; MDM: 09:06 Patient medically screened. [facility] 13:55 Data reviewed: vital signs, nurses notes, lab test result(s), EKG, radiologic studies, [facility] MRI, plain films. 09/16 09:33 Order name: Basic Metabolic Panel; Complete Time: 12:30 [facility] 09/16 09:33 Order name: CBC with Diff; Complete Time: 12:30 [facility] 09/16 09:33 Order name: LFT's; Complete Time: 12:30 [facility] 09/16 09:33 Order name: Magnesium; Complete Time: 12:30 [facility] 09/16 09:33 Order name: NT PRO-BNP; Complete Time: 12:30 [facility] 09/16 09:33 Order name: PT-INR; Complete Time: 12:30 [facility] 09/16 09:33 Order name: Troponin (emerg Dept Use Only); Complete Time: 12:30 [facility] 09/16 09:33 Order name: XRAY Chest (1 view); Complete Time: 12:30 [facility] 09/16 09:33 Order name: Lipase; Complete Time: 12:30 [facility] 09/16 09:33 Order name: Urine Culture [facility] 09/16 09:33 Order name: UDS; Complete Time: 12:30 [facility] 09/16 09:34 Order name: Brain Wo Cont MRI; Complete Time: 12:30 [facility] 09/16 12:09 Order name: Urine Dipstick--Ancillary (enter results) 09/16 12:45 Order name: Urine Dipstick-Ancillary; Complete Time: 13:21 EDMS 09/16 09:33 Order name: EKG; Complete Time: 09:34 [facility] 09/16 09:33 Order name: Cardiac monitoring; Complete Time: 09:35 [facility] 09/16 09:33 Order name: EKG - Nurse/Tech; Complete Time: 09:50 [facility] 09/16 09:33 Order name: IV Saline Lock; Complete Time: 09:50 [facility] 09/16 09:33 Order name: Labs collected and sent; Complete Time: 09:50 [facility] 09/16 09:33 Order name: O2 Per Protocol; Complete Time: 09:35 [facility] 09/16 09:33 Order name: O2 Sat Monitoring; Complete Time: 09:35 [facility] 09/16 09:33 Order name: Urine Dipstick-Ancillary (obtain specimen); Complete Time: 12:05 [facility] Administered Medications: 09:45 Drug: NS 0.9% 1000 ml Route: IV; Rate: 1 bolus; Site: left antecubital; hj 10:45 Follow up: IV Status: Completed infusion hj 09:45 Drug: Thiamine 100 mg Route: IV; Rate: bolus; Site: left antecubital; hj 14:34 Follow up: IV Status: Completed infusion hj 11:03 Drug: D5-1/2 NS 1000 ml Route: IV; Rate: 150 units/hr; Site: left antecubital; hj 13:33 Follow up: IV Status: Infusion continued upon transfer hj Disposition: 09/16/18 13:29 Transfer ordered to [facility]. Diagnosis are Anorexia - failure to thrive, Weakness, Major depressive disorder, recurrent, Volume depletion, Encephalopathy, unspecified. - Reason for transfer: Higher level of care. - Accepting physician is to [facility]. - Condition is Serious. - Problem is an ongoing problem. - Symptoms have improved. Signatures: Dispatcher [employer] Khadijah Paul RN RN Harris Lawson MD MD cha Joaquin, Henry, RN RN Christopher Daly RN RN mg2 Corrections: (The following items were deleted from the chart) 13:56 13:29 09/16/2018 13:29 Transfer ordered to [facility]. Diagnosis is karol Anorexia; Weakness; Major depressive disorder, recurrent; Volume depletion. Reason for transfer: Higher level of care. Accepting physician is to [facility]. Condition is Serious. Problem is an ongoing problem. Symptoms have improved. [facility] 13:57 13:56 09/16/2018 13:29 Transfer ordered to [facility]. Diagnosis is karol Anorexia - failure to thrive; Weakness; Major depressive disorder, recurrent; Volume depletion. Reason for transfer: Higher level of care. Accepting physician is to [facility]. Condition is Serious. Problem is an ongoing problem. Symptoms have improved. [facility] 16:55 13:57 09/16/2018 13:29 Transfer ordered to [facility]. Diagnosis is mg2 Anorexia - failure to thrive; Weakness; Major depressive disorder, recurrent; Volume depletion; Encephalopathy, unspecified. Reason for transfer: Higher level of care. Accepting physician is to [facility]. Condition is Serious. Problem is an ongoing problem. Symptoms have improved. karol
--- NOTE | 2018-09-16 13:30 | ER ---
Nurse's Notes [facility] Name: Jimbo Ridley Age: 37 yrs Sex: Male : 1980 Arrival Date: 09/16/2018 Time: 08:55 Bed 14 Private MD: Gee Coleman Diagnosis: Anorexia-failure to thrive;Weakness;Major depressive disorder, recurrent;Volume depletion;Encephalopathy, unspecified Presentation: 09/16 09:00 Presenting complaint: Father states: decreased appetite, not drinking water, not sv talking, and has lost 6 pounds since discharge. Transition of care: patient was not received from another setting of care. Onset of symptoms was August 2018. Care prior to arrival: None. 09:00 Method Of Arrival: Wheelchair sv 09:00 Acuity: ARIANNE 3 sv 09:05 Risk Assessment: Do you want to hurt yourself or someone else? Patient reports no hj desire to harm self or others. Initial Sepsis Screen: Does the patient meet any 2 criteria? No. Patient's initial sepsis screen is negative. Does the patient have a suspected source of infection? No. Patient's initial sepsis screen is negative. Triage Assessment: 09:00 General: Appears in no apparent distress. uncomfortable, slender, Behavior is sv uncooperative, Pt refuses to speak. Parents reports he hasn't spoken to them in the past week.. Pain: Denies pain. Neuro: Level of Consciousness is awake, alert, obeys commands. Respiratory: Respiratory effort is even, unlabored, Respiratory pattern is regular, symmetrical. 09:04 General: Appears in no apparent distress. uncomfortable, slender, Behavior is flat. hj General: Reports decrease appetite;. Pain: Denies pain. EENT: No signs and/or symptoms were reported regarding the EENT system. Neuro: Level of Consciousness is. Cardiovascular: Capillary refill < 3 seconds Patient's skin is warm and dry. Respiratory: Airway is patent Respiratory effort is even, unlabored, Respiratory pattern is regular, symmetrical. GI: No signs and/or symptoms were reported involving the gastrointestinal system. : No signs and/or symptoms were reported regarding the genitourinary system. Derm: No signs and/or symptoms reported regarding the dermatologic system. Musculoskeletal: No signs and/or symptoms reported regarding the musculoskeletal system. Historical: - Allergies: 09:01 Bactrim; sv - PMHx: 09:01 ANOREXIA; sv - PSHx: 09:01 None; sv - Immunization history:: Adult Immunizations up to date. - Social history:: Smoking status: Patient/guardian denies using tobacco. - Ebola Screening: : No symptoms or risks identified at this time. - Family history:: not pertinent. Screenin:03 Abuse screen: Denies threats or abuse. Denies injuries from another. Nutritional hj screening: No deficits noted. Tuberculosis screening: No symptoms or risk factors identified. Fall Risk None identified. Assessment: 09:10 General: Appears in no apparent distress. uncomfortable, slender, Behavior is flat, hj Reports loss of appetite and weight loss 6 lbs;. Pain: Denies pain. Neuro: Level of Consciousness is awake, alert, obeys commands. Cardiovascular: Capillary refill < 3 seconds Patient's skin is warm and dry. Respiratory: Airway is patent Respiratory effort is even, unlabored, Respiratory pattern is regular, symmetrical. GI: No signs and/or symptoms were reported involving the gastrointestinal system. : No signs and/or symptoms were reported regarding the genitourinary system. EENT: No signs and/or symptoms were reported regarding the EENT system. Derm: No signs and/or symptoms reported regarding the dermatologic system. Musculoskeletal: No signs and/or symptoms reported regarding the musculoskeletal system. 09:28 Reassessment: provider in room; pt making sign language that he is not able to speak, hj parent states, not been eating and lost weight since hospitalization;. 10:05 Reassessment: wheeled to MRI. hj 11:11 Reassessment: Patient and/or family updated on plan of care and expected duration. Pain hj level reassessed. awaiting results and POC;. 11:59 Reassessment: Patient and/or family updated on plan of care and expected duration. Pain hj level reassessed. awaiting POC:. 12:23 Reassessment: Patient and/or family updated on plan of care and expected duration. Pain hj level reassessed. family in room; inquired about test results; spoke to mom and told her MRI came back negative;. 13:02 Reassessment: family in room; no further concerns;. hj 13:30 Reassessment: pt for transfer; awaiting paper works. hj 13:49 Reassessment: family went out to have lunch; pts mom's cell phone number- [employer]- [phone];. 14:45 Reassessment: family with pt, pt signed transfer papers;. hj 15:33 Reassessment: Patient and/or family updated on plan of care and expected duration. Pain hj level reassessed. dad to ride with pt at EMS truck. Vital Signs: 09:01 BP 110 / 91; Pulse 88; Resp 16; Temp 97.1; Pulse Ox 100% ; Weight 57.61 kg; Pain 0/10; sv 09:09 BP 112 / 86; Pulse 84; Resp 18; Pulse Ox 99% on R/A; hj 10:10 BP 113 / 84; Pulse 80; Resp 18; Pulse Ox 100% on R/A; hj 11:12 BP 109 / 85; Pulse 75; Resp 18; Pulse Ox 100% on R/A; hj 11:59 BP 108 / 74; Pulse 84; Resp 18; Pulse Ox 98% on R/A; hj 12:22 BP 115 / 73; Pulse 70; Resp 18; Pulse Ox 100% on R/A; hj 13:02 BP 104 / 81; Pulse 83; Resp 18; Pulse Ox 100% on R/A; hj 13:30 BP 107 / 82; Pulse 78; Resp 18; Pulse Ox 100% on R/A; hj 14:14 BP 105 / 79; Pulse 103; Resp 18; Pulse Ox 100% on R/A; hj 15:34 BP 105 / 83; Pulse 70; Resp 18; Pulse Ox 100% on R/A; hj ED Course: 08:55 Patient arrived in ED. mr 08:55 Gee Coleman MD is Private Physician. mr 09:01 Triage completed. sv 09:01 Arm band placed on Patient placed in an exam room, on a stretcher. sv 09:03 Reji Pfeiffer, DEONTE is Primary Nurse. hj 09:05 Patient has correct armband on for positive identification. Bed in low position. Call light in reach. Side rails up X 1. Adult w/ patient. 09:06 Harris Asher MD is Attending Physician. karol 09:45 Initial lab(s) drawn, by hi, sent to lab. Inserted saline lock: 22 gauge in left hj antecubital area, using aseptic technique. Blood collected. 10:07 Radiology exam delayed due to pt taken to MRI before cxr could be done. mh1 10:14 Patient moved to MRI via wheelchair. lc 10:45 Patient moved back from MRI. lc 10:46 Brain Wo Cont MRI In Process Unspecified. EDMS 11:09 X-ray completed. Portable x-ray completed in exam room. Patient tolerated procedure ml well. 11:11 XRAY Chest (1 view) In Process Unspecified. EDMS 12:05 UDS Sent. iw 15:34 No provider procedures requiring assistance completed. Patient transferred, IV remains hj in place. intact. Administered Medications: 09:45 Drug: NS 0.9% 1000 ml Route: IV; Rate: 1 bolus; Site: left antecubital; hj 10:45 Follow up: IV Status: Completed infusion hj 09:45 Drug: Thiamine 100 mg Route: IV; Rate: bolus; Site: left antecubital; hj 14:34 Follow up: IV Status: Completed infusion hj 11:03 Drug: D5-1/2 NS 1000 ml Route: IV; Rate: 150 units/hr; Site: left antecubital; hj 13:33 Follow up: IV Status: Infusion continued upon transfer hj Outcome: 13:29 ER care complete, transfer ordered by MD. roberson 15:35 Transferred by ground EMS to [facility], Transfer form completed. hj X-rays sent w/ patient. 15:35 Condition: stable 15:35 Instructed on the need for transfer, Demonstrated understanding of instructions. 16:55 Patient left the ED. mg2 Signatures: Dispatcher [employer] EDMS Khadijah Sabillon, RN Harris Segura MD MD cha Rivera, Krupa mr Saniya, Daphney Eddy 1 Josefina Romero, Zoya Henson RN, Henry, RN RN hj Gardose, Michele, RN RN mg2
--- NOTE | 2018-09-16 22:07 | EKG ---
Test Date: 2018-09-16 Test Time: 09:45:22 Sourcing Analyst: SHELLY MEASUREMENT RESULTS: Intervals: Rate: 79 MN: 168 QRSD: 86 QT: 378 QTc: 433 [place]: P: 82 MN: 168 QRS: 83 T: 71 INTERPRETIVE STATEMENTS: Normal sinus rhythm Normal ECG Compared to ECG 08/22/2018 16:50:00 Sinus bradycardia no longer present Electronically Signed On 09-16-18 22:06:47 RESIDENTIAL ENERGY AUDITOR by Kenney Saldana
== END 2018-09-16 16:55 | disposition short-term general hospital (02) ==
LOC: ER 08:51
DX: R62.7 Adult failure to thrive (principal); E86.9 Volume depletion, unspecified; G93.40 Encephalopathy, unspecified; F33.9 Major depressive disorder, recurrent, unspecified; R53.1 Weakness; Z88.1 Allergy status to other antibiotic agents
CPT/HCPCS: 36415; 70551; 71045; 80048; 80076; 80307; 81003; 83690; 83735; 83880; 84484; 85025; 85610; 87077; 87086; 87088; 87186; 93005; 96365; 96366; 99285; J3411; J7030

== ENCOUNTER 2018-12-30 12:22 | Emergency (ER) | payer OTHER ==
--- OUTSIDE RECORDS SUMMARY | 2018-12-30 12:27 | XMS REPORT ---
:1980 Author Organization [facility] Address [address] [place] [id number] Care Team Providers Name Role Phone CEDRIC SCHULTZ Unavailable Unavailable Problems This patient has no known problems. Allergies, Adverse Reactions, Alerts This patient has no known allergies or adverse reactions. Medications This patient has no known medications. Results Test Description Test Time Test Comments Text Results Atomic Results Result Comments PHOSPHORUS 2018-09-21 06:18:00 Test Item Value Reference Range Comments PHOSPHORUS (BEAKER) (test tnuj=860) 3.3 mg/dL 2.3-4.7 [id number] 06:18:00 Test Item Value Reference Range Comments MAGNESIUM (BEAKER) (test ekvd=394) 2.1 mg/dL 1.6-2.6 BASIC METABOLIC [id number] 06:18:00 Test Item Value Reference Range Comments SODIUM (BEAKER) (test 142 meq/L 136-145 izly=641) POTASSIUM (BEAKER) (test 4.2 meq/L 3.5-5.1 dufo=427) CHLORIDE (BEAKER) (test 110 meq/L 98-107 vscj=114) CO2 (BEAKER) (test 27 meq/L 22-29 bwak=607) BLOOD UREA NITROGEN 9 mg/dL 7-21 (BEAKER) (test rfxx=200) CREATININE (BEAKER) (test 0.78 mg/dL 0.57-1.25 ttab=079) GLUCOSE RANDOM (BEAKER) 99 mg/dL 70-105 (test ajqu=579) CALCIUM (BEAKER) (test 9.5 mg/dL 8.4-10.2 tpye=322) EGFR (BEAKER) (test 112 mL/min/1.73 sq m ESTIMATED GFR IS NOT jpbk=0117) ACCURATE CREATININE CLEARANCE IN PREDICTING GLOMERULAR FILTRATION RATE. ESTIMATED GFR IS NOT APPLICABLE FOR DIALYSIS PATIENTS. [id number] 06:54:00 Test Item Value Reference Range Comments PHOSPHORUS (BEAKER) (test frnr=420) 3.0 mg/dL 2.3-4.7 [id number] 06:54:00 Test Item Value Reference Range Comments MAGNESIUM (BEAKER) (test yvhv=719) 2.1 mg/dL 1.6-2.6 BASIC METABOLIC [id number] 06:54:00 Test Item Value Reference Range Comments SODIUM (BEAKER) (test 140 meq/L 136-145 njul=506) POTASSIUM (BEAKER) (test 3.6 meq/L 3.5-5.1 tkrg=909) CHLORIDE (BEAKER) (test 108 meq/L 98-107 iwaj=953) CO2 (BEAKER) (test 27 meq/L 22-29 lddj=478) BLOOD UREA NITROGEN 11 mg/dL 7-21 (BEAKER) (test hrge=930) CREATININE (BEAKER) (test 0.79 mg/dL 0.57-1.25 kiqb=188) GLUCOSE RANDOM (BEAKER) 100 mg/dL 70-105 (test satt=427) CALCIUM (BEAKER) (test 9.1 mg/dL 8.4-10.2 mevb=299) EGFR (BEAKER) (test 110 mL/min/1.73 sq m ESTIMATED GFR IS NOT kiyb=1681) ACCURATE CREATININE CLEARANCE IN PREDICTING GLOMERULAR FILTRATION RATE. ESTIMATED GFR IS NOT APPLICABLE FOR DIALYSIS PATIENTS. POCT-GLUCOSE [id number] 11:46:00 Test Item Value Reference Range Comments POC-GLUCOSE METER (BEAKER) 93 mg/dL 70-110 TESTED AT [address] (test rtpp=6606) [facility] [address] POCT-GLUCOSE [id number] 08:21:00 Test Item Value Reference Range Comments POC-GLUCOSE METER (BEAKER) 98 mg/dL 70-110 TESTED AT [address] (test qeyk=4458) [facility] [address] [id number] 07:14:00 Test Item Value Reference Range Comments PHOSPHORUS (BEAKER) (test embi=059) 3.4 mg/dL 2.3-4.7 [id number] 07:14:00 Test Item Value Reference Range Comments MAGNESIUM (BEAKER) (test lagd=674) 2.1 mg/dL 1.6-2.6 BASIC METABOLIC [id number] 07:14:00 Test Item Value Reference Range Comments SODIUM (BEAKER) (test 139 meq/L 136-145 rppj=363) POTASSIUM (BEAKER) (test 3.6 meq/L 3.5-5.1 clbl=233) CHLORIDE (BEAKER) (test 107 meq/L 98-107 rtxp=525) CO2 (BEAKER) (test 23 meq/L 22-29 qxds=722) BLOOD UREA NITROGEN 9 mg/dL 7-21 (BEAKER) (test saad=853) CREATININE (BEAKER) (test 0.77 mg/dL 0.57-1.25 mzpu=335) GLUCOSE RANDOM (BEAKER) 97 mg/dL 70-105 (test kaor=425) CALCIUM (BEAKER) (test 9.2 mg/dL 8.4-10.2 juay=979) EGFR (BEAKER) (test 114 mL/min/1.73 sq m ESTIMATED GFR IS NOT jvfc=6083) ACCURATE CREATININE CLEARANCE IN PREDICTING GLOMERULAR FILTRATION RATE. ESTIMATED GFR IS NOT APPLICABLE FOR DIALYSIS PATIENTS. POCT-GLUCOSE [id number] 18:17:00 Test Item Value Reference Range Comments POC-GLUCOSE METER (BEAKER) 109 mg/dL 70-110 TESTED AT [address] (test ogrk=2465) [place] [address] RAD, ABDOMEN/KUB, 1 VIEW [id number] 16:35:00Reason for exam:->corpack placementFINAL REPORT CLINICAL HISTORY: corpak placement TECHNIQUE: Supine abdomen IMPRESSION: The tip of the feeding tube is in the gastric fundus. The partially visualized bowel gas pattern is nonspecific. Signed: John Lopez MDReport Verified Date/Time: 09/18/2018 16:35:57 Reading Location: [facility] [id number] Consult Reading Room POCT-GLUCOSE [id number] 12:55:00 Test Item Value Reference Range Comments POC-GLUCOSE METER (BEAKER) 105 mg/dL 70-110 TESTED AT [place] [id number] [facility] (test htke=9999) [place] [id number] POCT-GLUCOSE [id number] 08:46:00 Test Item Value Reference Range Comments POC-GLUCOSE METER (BEAKER) 107 mg/dL 70-110 TESTED AT [address] (test cred=6666) [facility] [address] [id number] 07:01:00 Test Item Value Reference Range Comments PHOSPHORUS (BEAKER) (test enzo=500) 3.0 mg/dL 2.3-4.7 [id number] 07:01:00 Test Item Value Reference Range Comments MAGNESIUM (BEAKER) (test oiqt=496) 1.9 mg/dL 1.6-2.6 BASIC METABOLIC [id number] 07:01:00 Test Item Value Reference Range Comments SODIUM (BEAKER) (test 140 meq/L 136-145 txon=262) POTASSIUM (BEAKER) (test 3.6 meq/L 3.5-5.1 hnut=741) CHLORIDE (BEAKER) (test 108 meq/L 98-107 mncc=814) CO2 (BEAKER) (test 26 meq/L 22-29 jjzg=444) BLOOD UREA NITROGEN 11 mg/dL 7-21 (BEAKER) (test qbtb=623) CREATININE (BEAKER) (test 0.82 mg/dL 0.57-1.25 atzd=639) GLUCOSE RANDOM (BEAKER) 97 mg/dL 70-105 (test blrc=420) CALCIUM (BEAKER) (test 9.1 mg/dL 8.4-10.2 zdlx=885) EGFR (BEAKER) (test 106 mL/min/1.73 sq m ESTIMATED GFR IS NOT aktl=7426) ACCURATE CREATININE CLEARANCE IN PREDICTING GLOMERULAR FILTRATION RATE. ESTIMATED GFR IS NOT APPLICABLE FOR DIALYSIS PATIENTS. POCT-GLUCOSE [id number] 22:25:00 Test Item Value Reference Range Comments POC-GLUCOSE METER (BEAKER) 101 mg/dL 70-110 TESTED AT [address] (test ufrc=7475) [facility] [address] EEG AWAKE AND [id number] 17:16:00Reason for exam:->AMS, facial twitchingDate of EE09/17/18 DATE OF REPORT: 09/17/18 ACC: [id number] EEG Number : [id number] Test Location: Inpatient Start time: 09/17/18 at 10:51 Stop time: 11/ 20/18 at 11:14 ICD-10: 47288 CPT Code: R56.9 HISTORY: 37 yo male with anxiety disorder, depression presents with abnormal facial movements, anorexia, weight loss and mutism. MEDICATIONS THAT COULD AFFECT EEG: amitriptyline, pantoprazole TECHNICAL SUMMARY: This is a digital video-EEG recorded with 32 input channels reviewed with bipolar and referential montages using the modified combinatorial system nomenclature. DESCRIPTION OF RECORD: Parts of the study are obscured by EEG artifact. During the maximally alert state a 8.5- 9 Hz posterior dominant rhythm was seen that was symmetric, reactive to eye opening and well regulated. More anteriorly, lowvoltage frontocentral beta predominated. Stage 2 sleep architecture was not recorded. SIGNIFICANT VIDEO EVENTS: The patient had brief episodes of mouth movements, eye flutter , eye rolling and deviation. EEG: There was no change in EEG with these events and no epileptiform activity. Fragments of posterior dominant rhythm were seen during some of these events. SIGNIFICANT ELECTROCARDIOGRAM EVENTS: None HV: Hyperventilation was not done. PHOTIC STIMULATION: Photic stimulation was done from 1-30 Hz; photic driving was seen; photoparoxysmal responses were absent. IMPRESSION: Normal awake EEG. CLINICAL CORRELATION: An EEG without epileptiform discharges does not exclude the possibility of epilepsy.If the clinical suspicion of epilepsy remains, consider additional EEG recordings. Mark Tai MD Neurophysiology Fellow I have reviewed the electroencephalogram and this report and agree with its interpretation. Bruna Oneil MD Attending Neurophysiologist Electronically signed by: BRUNA ONELI MD on 2017 05:16 PMPOCT-GLUCOSE [id number] 16:58:00 Test Item Value Reference Range Comments POC-GLUCOSE METER (BEAKER) 87 mg/dL 70-110 TESTED AT [address] (test jrca=4177) [facility] [address] POCT-GLUCOSE [id number] 11:42:00 Test Item Value Reference Range Comments POC-GLUCOSE METER (BEAKER) 98 mg/dL 70-110 TESTED AT [address] (test ntyd=3101) [facility] [address] [id number] 11:20:00 Test Item Value Reference Range Comments PREALBUMIN (BEAKER) (test ztxw=205) 13 mg/dL 14-45 POCT-GLUCOSE [id number] 08:02:00 Test Item Value Reference Range Comments POC-GLUCOSE METER (BEAKER) 81 mg/dL 70-110 TESTED AT [facility] [address] (test exho=4734) [facility] [address] VITAMIN B12 AND [id number] 05:24:00 Test Item Value Reference Range Comments VITAMIN B12 (BEAKER) (test mvbi=743) 639 pg/mL 213-816 FOLATE (BEAKER) (test qfjf=448) 9.7 ng/mL >=7.0 [id number] 05:04:00 Test Item Value Reference Range Comments PHOSPHORUS (BEAKER) (test aekx=647) 3.1 mg/dL 2.3-4.7 [id number] 05:04:00 Test Item Value Reference Range Comments MAGNESIUM (BEAKER) (test egwd=088) 2.1 mg/dL 1.6-2.6 COMPREHENSIVE METABOLIC [id number] 05:04:00 Test Item Value Reference Range Comments TOTAL PROTEIN (BEAKER) 6.1 gm/dL 6.0-8.3 (test nqex=155) ALBUMIN (BEAKER) (test 4.1 g/dL 3.5-5.0 urku=3045) ALKALINE PHOSPHATASE 47 U/L 40-150 (BEAKER) (test nfem=712) BILIRUBIN TOTAL (BEAKER) 1.5 mg/dL 0.2-1.2 (test xaqi=708) SODIUM (BEAKER) (test 140 meq/L 136-145 dgwt=452) POTASSIUM (BEAKER) (test 3.7 meq/L 3.5-5.1 jkqt=675) CHLORIDE (BEAKER) (test 107 meq/L 98-107 svfo=984) CO2 (BEAKER) (test 25 meq/L 22-29 swag=183) BLOOD UREA NITROGEN 18 mg/dL 7-21 (BEAKER) (test nwfg=713) CREATININE (BEAKER) (test 0.78 mg/dL 0.57-1.25 gwqf=076) GLUCOSE RANDOM (BEAKER) 90 mg/dL 70-105 (test gyfc=701) CALCIUM (BEAKER) (test 9.2 mg/dL 8.4-10.2 mhgh=482) AST (SGOT) (BEAKER) (test 13 U/L 5-34 tjfc=380) ALT (SGPT) (BEAKER) (test 12 U/L 6-55 ehnw=998) EGFR (BEAKER) (test 112 mL/min/1.73 sq ESTIMATED GFR IS NOT cmqe=7538) m ACCURATE CREATININE CLEARANCE IN PREDICTING GLOMERULAR FILTRATION RATE. ESTIMATED GFR IS NOT APPLICABLE FOR DIALYSIS PATIENTS. CBC W/PLT COUNT & AUTO [id number] 04:57:00 Test Item Value Reference Range Comments WHITE BLOOD CELL COUNT (BEAKER) (test lpbg=603) 7.9 K/ L 3.5-10.5 RED BLOOD CELL COUNT (BEAKER) (test badr=546) 4.50 M/ L 4.63-6.08 HEMOGLOBIN (BEAKER) (test ojcz=454) 14.5 GM/DL 13.7-17.5 HEMATOCRIT (BEAKER) (test jukq=243) 40.5 % 40.1-51.0 MEAN CORPUSCULAR VOLUME (BEAKER) (test qgkt=847) 90.0 fL 79.0-92.2 MEAN CORPUSCULAR HEMOGLOBIN (BEAKER) (test 32.2 pg 25.7-32.2 ffsr=870) MEAN CORPUSCULAR HEMOGLOBIN CONC (BEAKER) (test 35.8 GM/DL 32.3-36.5 afwf=336) RED CELL DISTRIBUTION WIDTH (BEAKER) (test 11.8 % 11.6-14.4 yljw=928) PLATELET COUNT (BEAKER) (test ikkf=925) 152 K/CU MM 150-450 MEAN PLATELET VOLUME (BEAKER) (test mmci=036) 12.7 fL 9.4-12.4 NUCLEATED RED BLOOD CELLS (BEAKER) (test 0 /100 WBC 0-0 xnyj=832) NEUTROPHILS RELATIVE PERCENT (BEAKER) (test 66 % kwko=943) LYMPHOCYTES RELATIVE PERCENT (BEAKER) (test 14 % vici=580) MONOCYTES RELATIVE PERCENT (BEAKER) (test 5 % dvoi=651) EOSINOPHILS RELATIVE PERCENT (BEAKER) (test 14 % zhfb=921) BASOPHILS RELATIVE PERCENT (BEAKER) (test 1 % zkna=540) NEUTROPHILS ABSOLUTE COUNT (BEAKER) (test 5.23 K/ L 1.78-5.38 cuph=853) LYMPHOCYTES ABSOLUTE COUNT (BEAKER) (test 1.07 K/ L 1.32-3.57 mhsf=286) MONOCYTES ABSOLUTE COUNT (BEAKER) (test 0.39 K/ L 0.30-0.82 mdld=275) EOSINOPHILS ABSOLUTE COUNT (BEAKER) (test 1.09 K/ L 0.04-0.54 ugsv=516) BASOPHILS ABSOLUTE COUNT (BEAKER) (test 0.07 K/ L 0.01-0.08 naib=022) IMMATURE GRANULOCYTES-RELATIVE PERCENT (BEAKER) 0 % 0-1 (test qneo=5665) POCT-GLUCOSE [id number] 00:57:00 Test Item Value Reference Range Comments POC-GLUCOSE METER (BEAKER) 85 mg/dL 70-110 TESTED AT [facility] [address] (test olfv=7251) [facility] [address]
--- OUTSIDE RECORDS SUMMARY | 2018-12-30 12:27 | XMS REPORT | Clinical Summary ---
:1980 Author Organization [facility] Address [address] [place] [address] Care Team Providers Name Role Phone Unavailable Primary Care Provider Unavailable Allergies Active Allergy Reactions Severity Noted Date Comments Sulfamethoxazole-Trimethoprim 09/16/2018 Medications Medication Sig Dispensed Refills Start Date End Date Status LORazepam (ATIVAN) Take 3 tablets 30 tablet 0 09/21/2018 Active 0.5 MG tablet (1.5 mg total) by mouth every 6 (six) hours Taper per psych facility. Max Daily Amount: 6 mg nystatin Apply topically 15 g 0 09/21/2018 Active (MYCOSTATIN) 2 (two) times 9 100,000 unit/gram daily For powder scrotal irritation. multivitamin Take 1 tablet 0 09/22/2018 Active (THERAGRAN) tablet by mouth daily. 9 pantoprazole Take 40 mg by 0 Discontinued (PROTONIX) 40 MG mouth. 8 tablet amitriptyline Take 10 mg by 0 Discontinued (ELAVIL) 10 MG mouth nightly. 8 tablet LORazepam (ATIVAN) Take 1 tablet 30 tablet 0 09/21/2018 1 MG tablet (1 mg total) by 8 mouth every 3 (three) hours as needed (rigidity/catat onia) for up to 10 days. 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 Failure to thrive in adult 09/16/2018 Facial tic 09/16/2018 Muteness 09/16/2018 Severe protein-calorie malnutrition 09/16/2018 Encounters Date Type Specialty Care Team Description 09/19/2018 Travel 09/16/2018 - Hospital Encounter General Internal Anali, Facial tic; 09/21/2018 Medicine MD Tal Failure to thrive in adult; Lam Munguia MD Severe protein-calorie malnutrition (HCC); Kim Johnson Major depressive disorder, recurrent episode with catatonia (HCC) MD Reina after 12/29/2017 Family History Medical History Relation Name Comments Mental illness Maternal Aunt Relation Name Status Comments Maternal Aunt Social History Tobacco Use Types Packs/Day Years Used Date Never Smoker Smokeless Tobacco: Never Used Alcohol Use Drinks/Week oz/Week Comments No Alcohol Habits Answer Date Recorded How often do you have a drink containing alcohol? Never 09/16/2018 How many drinks containing alcohol do you have on a typical Not asked day when you are drinking? How often do you have six or more drinks on one occasion? Not asked Sex Assigned at Date Recorded Not on file Job Start Date Occupation Industry Not on file Not on file Not on file Travel History Travel Start Travel End No recent travel history available. Last Filed Vital Signs Vital Sign Reading Time Taken Blood Pressure 109/79 09/21/2018 4:00 PM LAB SCIENTIST Pulse 103 09/21/2018 4:00 PM LAB SCIENTIST Temperature 36.4 C (97.5 F) 09/21/2018 11:30 AM LAB SCIENTIST Respiratory Rate 20 09/21/2018 4:00 PM LAB SCIENTIST Oxygen Saturation 100% 09/21/2018 4:00 PM LAB SCIENTIST Inhaled Oxygen Concentration - - Weight 57.6 kg (126 lb 15.8 oz) 09/16/2018 8:01 PM LAB SCIENTIST Height 188 cm (6' 2") 09/19/2018 8:00 PM LAB SCIENTIST Body Mass Index 16.3 09/16/2018 8:01 PM LAB SCIENTIST Plan of Treatment Not on file Procedures Procedure Name Priority Date/Time Associated Comments Diagnosis PHOSPHORUS Routine 09/21/2018 5:35 Results for this AM LAB SCIENTIST procedure are in the results section. MAGNESIUM Routine 09/21/2018 5:35 Results for this AM LAB SCIENTIST procedure are in the results section. BASIC METABOLIC PANEL Routine 09/21/2018 5:35 Results for this (7) AM LAB SCIENTIST procedure are in the results section. PHOSPHORUS Routine 09/20/2018 5:26 Results for this AM LAB SCIENTIST procedure are in the results section. MAGNESIUM Routine 09/20/2018 5:26 Results for this AM LAB SCIENTIST procedure are in the results section. BASIC METABOLIC PANEL Routine 09/20/2018 5:26 Results for this (7) AM LAB SCIENTIST procedure are in the results section. POCT-GLUCOSE METER Routine 09/19/2018 11:44 Results for this AM LAB SCIENTIST procedure are in the results section. POCT-GLUCOSE METER Routine 09/19/2018 7:53 Results for this AM LAB SCIENTIST procedure are in the results section. PHOSPHORUS Routine 09/19/2018 6:18 Results for this AM LAB SCIENTIST procedure are in the results section. MAGNESIUM Routine 09/19/2018 6:18 Results for this AM LAB SCIENTIST procedure are in the results section. BASIC METABOLIC PANEL Routine 09/19/2018 6:18 Results for this (7) AM LAB SCIENTIST procedure are in the results section. POCT-GLUCOSE METER Routine 09/18/2018 5:44 Results for this PM LAB SCIENTIST procedure are in the results section. XR ABDOMEN 1 VIEW STACEY 09/18/2018 4:25 Results for this PM LAB SCIENTIST procedure are in the results section. POCT-GLUCOSE METER Routine 09/18/2018 12:09 Results for this PM LAB SCIENTIST procedure are in the results section. POCT-GLUCOSE METER Routine 09/18/2018 8:20 Results for this AM LAB SCIENTIST procedure are in the results section. PHOSPHORUS Routine 09/18/2018 5:49 Results for this AM LAB SCIENTIST procedure are in the results section. MAGNESIUM Routine 09/18/2018 5:49 Results for this AM LAB SCIENTIST procedure are in the results section. BASIC METABOLIC PANEL Routine 09/18/2018 5:49 Results for this (7) AM LAB SCIENTIST procedure are in the results section. POCT-GLUCOSE METER Routine 09/17/2018 10:23 Results for this PM LAB SCIENTIST procedure are in the results section. POCT-GLUCOSE METER Routine 09/17/2018 4:47 Results for this PM LAB SCIENTIST procedure are in the results section. POCT-GLUCOSE METER Routine 09/17/2018 11:27 Results for this AM LAB SCIENTIST procedure are in the results section. EEG AWAKE AND DROWSY Routine 09/17/2018 11:14 Results for this AM LAB SCIENTIST procedure are in the results section. POCT-GLUCOSE METER Routine 09/17/2018 7:22 Results for this AM LAB SCIENTIST procedure are in the results section. PREALBUMIN Add-On 09/17/2018 4:24 Results for this AM LAB SCIENTIST procedure are in the results section. PHOSPHORUS Routine 09/17/2018 4:24 Results for this AM LAB SCIENTIST procedure are in the results section. MAGNESIUM Routine 09/17/2018 4:24 Results for this AM LAB SCIENTIST procedure are in the results section. COMPREHENSIVE Routine 09/17/2018 4:24 Results for this METABOLIC PANEL AM LAB SCIENTIST procedure are in the results section. VITAMIN B12 AND FOLATE Routine 09/17/2018 4:24 Results for this AM LAB SCIENTIST procedure are in the results section. CBC W/PLT COUNT & AUTO Routine 09/17/2018 4:23 Results for this DIFFERENTIAL AM LAB SCIENTIST procedure are in the results section. CBC W/PLT COUNT & AUTO Routine 09/17/2018 4:23 Results for this DIFFERENTIAL AM LAB SCIENTIST procedure are in the results section. POCT-GLUCOSE METER Routine 09/17/2018 12:55 Results for this AM LAB SCIENTIST procedure are in the results section. after 12/29/2017 Results Phosphorus (09/21/2018 5:35 AM LAB SCIENTIST)Only the most recent of5 resultswithin the time period is included. Phosphorus 3.3 2.3 - 4.7 mg/dL [facility] Specimen Blood - Arm, Right Performing Organization Address [facility] Phone Number [address] [address] CENTER Magnesium (09/21/2018 5:35 AM LAB SCIENTIST)Only the most recent of5 resultswithin the time period is included. Magnesium 2.1 1.6 - 2.6 mg/dL [facility] Specimen Blood - Arm, Right Performing Organization Address [facility]/Zipcode Phone Number [address] [phone] CENTER Basic Metabolic Panel (09/21/2018 5:35 AM LAB SCIENTIST)Only the most recent of4 resultswithin the time period is included. Sodium 142 136 - 145 meq/L [facility] Potassium 4.2 3.5 - 5.1 meq/L [facility] Chloride 110 (H) 98 - 107 meq/L [facility] CO2 27 22 - 29 meq/L [facility] BUN 9 7 - 21 mg/dL [facility] Creatinine 0.78 0.57 - 1.25 mg/dL [facility] Glucose 99 70 - 105 mg/dL [facility] Calcium 9.5 8.4 - 10.2 mg/dL [facility] EGFR 112Comment: ESTIMATED GFR IS mL/min/1.73 sq m [facility] NOT ACCURATE CREATININE [facility] CLEARANCE IN PREDICTING GLOMERULAR FILTRATION RATE. ESTIMATED GFR IS NOT APPLICABLE FOR DIALYSIS PATIENTS. Specimen Blood - Arm, Right Performing Organization Address City/[facility] Centercode Phone Number [address] [phone] CENTER POC-Glucose meter (09/19/2018 11:44 AM LAB SCIENTIST)Only the most recent of10 resultswithin the time period is included. POC-Glucose Meter 93Comment: TESTED AT 70 - 110 mg/dL [address] [address] Specimen Blood Performing Organization Address [facility] Cent[facility] Phone Number [address] [phone] [place] XR abdomen / KUB 1 view (09/18/2018 4:25 PM LAB SCIENTIST) Narrative Performed At FINAL REPORT GE RIS CLINICAL HISTORY: corpak placement TECHNIQUE: Supine abdomen IMPRESSION: The tip of the feeding tube is in the gastric fundus. The partially visualized bowel gas pattern is nonspecific. Signed: John Lopez MD Report Verified Date/Time:09/18/2018 16:35:57 Reading Location: [facility] C013 Consult Reading Room Procedure Note Interface, External Ris In - 09/18/2018 4:38 PM LAB SCIENTIST FINAL REPORT CLINICAL HISTORY: corpak placement TECHNIQUE: Supine abdomen IMPRESSION: The tip of the feeding tube is in the gastric fundus. The partially visualized bowel gas pattern is nonspecific. Signed: John Lopez MD Report Verified Date/Time: 09/18/2018 16:35:57 Reading Location: [facility] B1 [id number] Consult Reading Room Performing Organization Address City/State/Zipcode Phone Number [facility] EEG AWAKE AND DROWSY (09/17/2018 11:14 AM LAB SCIENTIST) Narrative Performed At Date of EE09/17/18 [facility] DATE OF REPORT: 09/17/18 ACC: [id number] EEG Number: [id number] Test Location: Inpatient Start time: 09/17/18 at 10:51 Stop time: 09/17/18 at 11:14 ICD-10: 95632 CPT Code: R56.9 HISTORY: 37 yo male with anxiety disorder, depression presents with abnormal facial movements, anorexia, weight loss and mutism. MEDICATIONS THAT COULD AFFECT EEG:amitriptyline, pantoprazole TECHNICAL SUMMARY: This is a digital video-EEG recorded with 32 input channels reviewed with bipolar and referential montages using the modified combinatorial system nomenclature. DESCRIPTION OF RECORD: Parts of the study are obscured by EEG artifact. During the maximally alert state a 8.5-9 Hz posterior dominant rhythm was seen that was symmetric, reactive to eye opening and well regulated.More anteriorly, low voltage frontocentral beta predominated. Stage 2 sleep architecture was not recorded. SIGNIFICANT VIDEO EVENTS: The patient had brief episodes of mouth movements, eye flutter , eye rolling and deviation. EEG: There was no change in EEG with these events and no epileptiform activity. Fragments of posterior dominantrhythm were seen during some of these events. [...] its interpretation. Bruna Oneil MD Attending Neurophysiologist Procedure Note Interface, External Ris In - 09/17/2018 5:16 PM LAB SCIENTIST Date of EE09/17/18 DATE OF REPORT: 09/17/18 ACC: [id number] EEG Number: [id number] Test Location: Inpatient Start time: 09/17/18 at 10:51 Stop time: 09/17/18 at 11:14 ICD-10: 01144 CPT Code: R56.9 HISTORY: 37 yo male [...] artifact. During the maximally alert state a 8.5-9 Hz posterior dominant rhythm was seen that was symmetric, reactive to eye opening and well regulated. More anteriorly, low voltage frontocentral beta predominated. Stage 2 sleep architecture [...] discharges does not exclude the possibility of epilepsy. If the clinical suspicion of epilepsy remains, consider additional EEG recordings. Mark Tai MD Neurophysiology Fellow I have reviewed the electroencephalogram and this report and agree with its interpretation. Bruna Oneil MD Attending Neurophysiologist Performing Organization Address [facility] Phone Number GE RIS Vitamin B12 and Folate (09/17/2018 4:24 AM LAB SCIENTIST) Vitamin B12 639 213 - 816 pg/mL [facility] Folate 9.7 >=7.0 ng/mL [facility] Specimen Blood Performing Organization Address [facility] Phone Number [facility] MEDICAL [address] [place] [address] CENTER Prealbumin (09/17/2018 4:24 AM LAB SCIENTIST) Prealbumin 13 (L) 14 - 45 mg/dL [facility] Specimen Blood Performing Organization Address City/State/Zipcode Phone Number [facility] [address] [place] [address] [phone] [place] Comprehensive metabolic panel (09/17/2018 4:24 AM LAB SCIENTIST) Protein, Total 6.1 6.0 - 8.3 gm/dL [facility] Albumin 4.1 3.5 - 5.0 g/dL [facility] Alkaline Phosphatase 47 40 - 150 U/L [facility] Total Bilirubin 1.5 (H) 0.2 - 1.2 mg/dL [facility] Sodium 140 136 - 145 meq/L [facility] Potassium 3.7 3.5 - 5.1 meq/L [facility] Chloride 107 98 - 107 meq/L [facility] CO2 25 22 - 29 meq/L [facility] BUN 18 7 - 21 mg/dL [facility] Creatinine 0.78 0.57 - 1.25 mg/dL [facility] Glucose 90 70 - 105 mg/dL [facility] Calcium 9.2 8.4 - 10.2 mg/dL [facility] AST 13 5 - 34 U/L [facility] ALT 12 6 - 55 U/L [facility] EGFR 112Comment: ESTIMATED mL/min/1.73 sq m [facility] GFR IS NOT ACCURATE [facility] CREATININE CLEARANCE IN PREDICTING GLOMERULAR FILTRATION RATE. ESTIMATED GFR IS NOT APPLICABLE FOR DIALYSIS PATIENTS. Specimen Blood Performing Organization Address City/[facility]/Zipcode Phone Number [facility] [address] [place] [address] [place] CBC with platelet count + automated diff (09/17/2018 4:23 AM LAB SCIENTIST) WBC 7.9 3.5 - 10.5 K/L [facility] RBC 4.50 (L) 4.63 - 6.08 M/L [facility] Hemoglobin 14.5 13.7 - 17.5 GM/DL [facility] Hematocrit 40.5 40.1 - 51.0 % [facility] MCV 90.0 79.0 - 92.2 fL [facility] MCH 32.2 25.7 - 32.2 pg [facility] MCHC 35.8 32.3 - 36.5 GM/DL [facility] RDW 11.8 11.6 - 14.4 % [facility] Platelets 152 150 - 450 K/CU MM [facility] MPV 12.7 (H) 9.4 - 12.4 fL [facility] nRBC 0 0 - 0 /100 WBC [facility] % Neutros 66 % [facility] % Lymphs 14 % [facility] % Monos 5 % [facility] % Eos 14 % [facility] % Baso 1 % [facility] # Neutros 5.23 1.78 - 5.38 K/L [facility] # Lymphs 1.07 (L) 1.32 - 3.57 K/L [facility] # Monos 0.39 0.30 - 0.82 K/L [facility] # Eos 1.09 (H) 0.04 - 0.54 K/L [facility] # Baso 0.07 0.01 - 0.08 K/L [facility] Immature Granulocytes-Relative 0 0 - 1 % [facility] Specimen Blood Performing Organization Address City/State/Zipcode Phone Number [facility] [address] [place] [address] CENTER after 12/29/2017 Insurance Payer Benefit Plan / Group Subscriber ID Type Phone Address [employer] - MGD CARE CIGNA HMO/POS/OPEN ACCESS xxxxxxxxxxx HMO/POS CIGNA - COMMERCIAL CIGNA INDEMNITY xxxxxxxxxxx Comm Advance Directives For more information, please contact:[address] [phone] Code Status Date Activated Date Inactivated Comments Full Code 09/16/2018 6:55 PM This code status was determined by: Patient
[2018-12-30 13:14] LABS: Absolute Monocytes 0.3 K/uL (0.1-1.3); Absolute Neutrophil 3.4 K/uL (1.8-8.0); Basophils % 0.8 % (0-1.3); Eosinophils % 1.9 % (0-4.4); Hematocrit 46.2 % (39.6-49.0); Lymphocytes % 20.7 % (15.3-44.8); MPV 10.1 fL (7.6-11.3); Monocytes % 5.7 % (3.3-12.3)
[2018-12-30 13:16] LABS: Protime INR 1.08
[2018-12-30] MEDS ORDERED: LORazepam 2 MG/ML VIAL ONE (13:20)
[2018-12-30] MEDS ORDERED: NA CHLORIDE 0.9% 1,000 ML ONE (13:21)
[2018-12-30] MEDS ORDERED: DIPHENHYDRAMINE 50 MG/ML VIAL ONE (13:21)
[2018-12-30] MEDS ORDERED: HALOPERIDOL LACT 5 MG/ML INJ ONE (13:29)
[2018-12-30 13:35] LABS: ALT/SGPT 44 U/L (12-78); AST/SGOT 19 U/L (15-37); Albumin 4.5 g/dL (3.4-5.0); Alkaline Phosphatase 105 U/L (45-117); BUN Blood Urea Nitrogen 21 mg/dL (7-18); Bicarbonate 28 mmol/L (21-32); Bilirubin Direct 0.2 mg/dL (0-0.2); Bilirubin Total 0.7 mg/dL (0.2-1.0); Glucose Level 102 mg/dL (74-106); Magnesium 2.3 mg/dL (1.8-2.4); NT PRO-BNP 31 pg/mL (<125); Potassium 3.9 mmol/L (3.5-5.1); Protein, Total 7.7 g/dL (6.4-8.2); Sodium Level 141 mmol/L (136-145); Troponin (Emerg Dept Use Only) < 0.02 ng/mL (0.0-0.045)
--- NOTE | 2018-12-30 13:42 | EKG ---
Test Date: 2018-12-30 Test Time: 12:25:29 Protective Signal Installer Helper: SHELLY MEASUREMENT RESULTS: Intervals: Rate: 76 KS: 174 QRSD: 90 QT: 386 QTc: 434 [place]: P: 74 KS: 174 QRS: 73 T: 59 INTERPRETIVE STATEMENTS: Normal sinus rhythm Normal ECG Compared to ECG 09/16/2018 09:45:22 No significant changes Electronically Signed On 12-30-18 13:37:39 [employer]IANCES CONSULTANT by Kenney Saldana
--- NOTE | 2018-12-30 14:23 | RAD REPORT ---
EXAM DESCRIPTION: Cluade Single View12/30/2018 2:13 pm CLINICAL HISTORY: Chest pain COMPARISON: August 2018 FINDINGS: The lungs appear clear of acute infiltrate. The heart is normal size IMPRESSION: No acute abnormalities displayed
[2018-12-30 14:33] LABS: Barbiturates NEGATIVE (NEGATIVE); Benzodiazepines NEGATIVE (NEGATIVE); Cocaine NEGATIVE (NEGATIVE); METHAMPHETAM NEGATIVE (NEGATIVE); Methadone NEGATIVE (NEGATIVE); Opiates NEGATIVE (NEGATIVE); Phencyclidine NEGATIVE (NEGATIVE); THC Cannibis NEGATIVE (NEGATIVE)
[2018-12-30 14:44] LABS: Urine Blood TRACE (NEG); Urine Glucose NEGATIVE (NEG); Urine Protein NEGATIVE (NEG); Urine Specific Gravity 1.025 (1.005-1.030); Urine pH 6.5 (5.0-7.0)
--- NOTE | 2018-12-30 16:17 | ER ---
Nurse's Notes [facility] Name: Jimbo Ridley Age: 38 yrs Sex: Male : 1980 Arrival Date: 12/30/2018 Time: 12:22 Bed 3 Private MD: Diagnosis: Catatonic schizophrenia Presentation: 12/30 12:22 Presenting complaint: Patient states: family called, pt did not take his medications hj starting Sunday, hx of psych issues, pt seems to be in catatonic state, pt on triage is not responsive to staff; eyes wide open, stares at a distance; 18 G R AC; BGL- 111; BP- 127/86; HR- 76; O2 sat- 100% RA;. Transition of care: patient was not received from another setting of care. Onset of symptoms was December 30, 2018. Risk Assessment: Do you want to hurt yourself or someone else? Patient reports no desire to harm self or others. Initial Sepsis Screen: Does the patient meet any 2 criteria? No. Patient's initial sepsis screen is negative. Does the patient have a suspected source of infection? No. Patient's initial sepsis screen is negative. Care prior to arrival: None. 12:22 Method Of Arrival: EMS: [facility] 12:22 Acuity: ARIANNE 3 hj Triage Assessment: 12:27 General: Appears in no apparent distress. uncomfortable, Behavior is flat, hj uncooperative, unresponsive. Pain: Denies pain. EENT: No signs and/or symptoms were reported regarding the EENT system. Neuro: Level of Consciousness is awake, stuporous, Oriented to none. Cardiovascular: Capillary refill < 3 seconds Patient's skin is warm and dry. Respiratory: Airway is patent Respiratory effort is even, unlabored, Respiratory pattern is regular, symmetrical. GI: No signs and/or symptoms were reported involving the gastrointestinal system. : No signs and/or symptoms were reported regarding the genitourinary system. Derm: No signs and/or symptoms reported regarding the dermatologic system. Musculoskeletal: No signs and/or symptoms reported regarding the musculoskeletal system. Historical: - Allergies: 12:27 Bactrim; hj - Home Meds: 12:27 quetiapine 100 mg oral tab 1 tab nightly [Active]; mirtazapine 15 mg Oral TbDL 1 tab hj once daily [Active]; venlafaxine 150 mg oral cp24 2 cap once daily [Active]; - PMHx: 12:27 ANOREXIA; Depression; hj - PSHx: 12:27 None; hj - Immunization history:: Adult Immunizations unknown. - Social history:: Smoking status: Patient/guardian denies using tobacco, Patient/guardian denies using alcohol, Patient/guardian denies using street drugs, The patient lives with family. - Ebola Screening: : Patient negative for fever greater than or equal to 101.5 degrees Fahrenheit, and additional compatible Ebola Virus Disease symptoms Patient denies exposure to infectious person Patient denies travel to an Ebola-affected area in the 21 days before illness onset. - Family history:: not pertinent. Screenin:28 Abuse screen: Denies threats or abuse. Denies injuries from another. Nutritional hj screening: No deficits noted. Tuberculosis screening: No symptoms or risk factors identified. Fall Risk Secondary diagnosis (15 points). Assessment: 12:30 Reassessment: see triage for assessment;. hj 13:30 Reassessment: Patient and/or family updated on plan of care and expected duration. Pain hj level reassessed. no response when being asked;. 14:41 Reassessment: Patient and/or family updated on plan of care and expected duration. Pain hj level reassessed. family in room;. 15:05 Reassessment: gave nurse to nurse intake report, Juliann Espinoza [facility]; they hj will call back for doc tgo doc report;. 16:18 Reassessment: provider in room talking to pt's mom regarding facility placement;. hj 17:18 Reassessment: awaiting EMS ride to transport pt;. hj 17:39 Reassessment: brief changed;. hj 18:51 Reassessment: EMS to transport pt to [facility];. hj Vital Signs: 12:29 BP 112 / 80; Pulse 81; Resp 18; Temp 97.7(O); Pulse Ox 100% on R/A; Weight 81.65 kg; hj Height 5 ft. 10 in. (177.80 cm); Pain 0/10; 13:30 BP 110 / 78; Pulse 80; Resp 18; Pulse Ox 100% on R/A; hj 14:42 BP 103 / 71; Pulse 68; Resp 18; Pulse Ox 100% on R/A; hj 15:20 BP 116 / 72; Pulse 66; Resp 18; Pulse Ox 100% on R/A; hj 16:17 BP 105 / 76; Pulse 82; Resp 18; Pulse Ox 100% on R/A; hj 17:15 BP 103 / 74; Pulse 80; Resp 18; Pulse Ox 100% on R/A; hj 18:51 BP 105 / 90; Pulse 84; Resp 18; Pulse Ox 100% on R/A; hj 12:29 Body Mass Index 25.83 (81.65 kg, 177.80 cm) hj ED Course: 12:22 Patient arrived in ED. hj 12:25 Triage completed. hj 12:27 Lyn Sheth MD is Attending Physician. ma2 12:29 Arm band placed on right wrist. hj 12:29 Patient has correct armband on for positive identification. Placed in gown. Bed in low hj position. Call light in reach. Side rails up X2. 12:31 Reji Pfeiffer RN is Primary Nurse. hj 12:31 EKG done, by laboratory mechanical technician. reviewed by Lyn Sheth MD. at1 12:31 Maintain EMS IV. Dressing intact. Good blood return noted. Site clean \T\ dry. Gauge \T\ hj site: 19 g RA AC. 13:58 X-ray completed. Portable x-ray completed in exam room. Patient tolerated procedure jb2 well. 14:06 XRAY Chest (1 view) In Process Unspecified. EDMS 18:50 No provider procedures requiring assistance completed. IV discontinued, intact, hj bleeding controlled, No redness/swelling at site. Pressure dressing applied. Administered Medications: 13:15 Not Given (not available): ZyPREXA 20 mg PO once; please give IV not IM hj 13:21 Drug: HALdol 5 mg Route: IVP; Site: right antecubital; hj 14:21 Follow up: Response: No adverse reaction ss 13:22 Drug: Benadryl 50 mg Route: IVP; Site: right antecubital; hj 14:21 Follow up: Response: No adverse reaction ss 13:22 Drug: Ativan 2 mg Route: IVP; Site: right antecubital; hj 14:21 Follow up: Response: No adverse reaction ss 13:23 Drug: NS 0.9% 1000 ml Route: IV; Rate: 1 bolus; Site: right antecubital; hj 14:21 Follow up: IV Status: Completed infusion; IV Intake: 1000ml ss Intake: 14:21 IV: 1000ml; Total: 1000ml. Outcome: 16:17 ER care complete, transfer ordered by . 18:50 Transferred by ground EMS Transfer form completed. X-rays sent w/ patient. Note: [facility] 18:50 Condition: stable 18:50 Instructed on the need for transfer, Demonstrated understanding of instructions. 18:52 Patient left the ED. Signatures: Dispatcher [employer] EDMS Jasiel Pierce2 Cecelia Pulido, DEONTE RN Justina Montano, rubber goods finisher EKG Tat1 Reji Pfeiffer RN RN Barney Laws MD MD Lyn Sheth MD MD ma2 Corrections: (The following items were deleted from the chart) 12:33 12:29 BP 112 / 80; Pulse 81bpm; Resp 18bpm; Pulse Ox 100% RA; Temp 98.1F Oral; 81.65 hj kg; Height 5 ft. 10 in.; BMI: 25.8; Pain 0/10; hj
--- NOTE | 2018-12-30 16:18 | EDPHYS ---
Physician Documentation [facility] Name: Jimbo Ridley Age: 38 yrs Sex: Male : 1980 Arrival Date: 12/30/2018 Time: 12:22 Bed 3 Private MD: ED Physician Lyn Sheth HPI: 12/30 13:16 This 38 yrs old Male presents to ER via EMS with complaints of catatonia. ma2 13:16 The patient presents to the emergency department with anxiety, depression. Onset: The ma2 symptoms/episode began/occurred gradually, 3 day(s) ago. Past psychiatric history: Prior diagnosis: depression, anxiety. Associated signs and symptoms: Pertinent negatives:. Severity of symptoms: At their worst the symptoms were moderate in the emergency department the symptoms are unchanged. The patient has experienced similar episodes in the past. not taking not communicating not taking his meds not eating, severe catatonia. Historical: - Allergies: 12:27 Bactrim; hj - Home Meds: 12:27 quetiapine 100 mg oral tab 1 tab nightly [Active]; mirtazapine 15 mg Oral TbDL 1 tab hj once daily [Active]; venlafaxine 150 mg oral cp24 2 cap once daily [Active]; - PMHx: 12:27 ANOREXIA; Depression; hj - PSHx: 12:27 None; hj - Immunization history:: Adult Immunizations unknown. - Social history:: Smoking status: Patient/guardian denies using tobacco, Patient/guardian denies using alcohol, Patient/guardian denies using street drugs, The patient lives with family. - Ebola Screening: : Patient negative for fever greater than or equal to 101.5 degrees Fahrenheit, and additional compatible Ebola Virus Disease symptoms Patient denies exposure to infectious person Patient denies travel to an Ebola-affected area in the 21 days before illness onset. - Family history:: not pertinent. ROS: 13:16 Unable to obtain ROS due to patient being uncooperative. ma2 Exam: 13:16 Constitutional: This is a well developed, well nourished patient who is awake, alert, ma2 and in no acute distress. Head/Face: Normocephalic, atraumatic. 13:16 Neuro: patient is catatonic not cooperative not following commands, temp wnl, no rigidity or seizure . 13:16 Psych: Behavior/mood is appropriate for age, inappropriate for age, Affect is flat, unable to perform exam . Vital Signs: 12:29 BP 112 / 80; Pulse 81; Resp 18; Temp 97.7(O); Pulse Ox 100% on R/A; Weight 81.65 kg; hj Height 5 ft. 10 in. (177.80 cm); Pain 0/10; 13:30 BP 110 / 78; Pulse 80; Resp 18; Pulse Ox 100% on R/A; hj 14:42 BP 103 / 71; Pulse 68; Resp 18; Pulse Ox 100% on R/A; hj 15:20 BP 116 / 72; Pulse 66; Resp 18; Pulse Ox 100% on R/A; hj 16:17 BP 105 / 76; Pulse 82; Resp 18; Pulse Ox 100% on R/A; hj 17:15 BP 103 / 74; Pulse 80; Resp 18; Pulse Ox 100% on R/A; hj 18:51 BP 105 / 90; Pulse 84; Resp 18; Pulse Ox 100% on R/A; hj 12:29 Body Mass Index 25.83 (81.65 kg, 177.80 cm) hj MDM: 12:27 Patient medically screened. ma2 13:16 Differential diagnosis: acute psychotic break, depression, psychosis secondary to ma2 non-compliance, unlikely neuroleptic malignant syndrome temp wnl. 20:48 ED course: spoke with dr palacios notified him of patient's condition told him pt was gs catatonic but awake but would not get up. he said that he would accept the patient. 12/30 12:49 Order name: Basic Metabolic Panel; Complete Time: 14:22 in12/30 12:49 Order name: CBC with Diff; Complete Time: 14:22 12/30 12:49 Order name: LFT's; Complete Time: 14:22 in12/30 12:49 Order name: Magnesium; Complete Time: 14:22 12/30 12:49 Order name: NT PRO-BNP; Complete Time: 14:22 12/30 12:49 Order name: PT-INR; Complete Time: 14:22 in12/30 12:49 Order name: Troponin (emerg Dept Use Only); Complete Time: 14:22 12/30 14:05 Order name: UDS; Complete Time: 15:45 ss 12/30 14:13 Order name: Urine Dipstick--Ancillary (enter results) bd 12/30 14:13 Order name: Urine Dipstick-Ancillary; Complete Time: 15:45 EDMS 12/30 14:19 Order name: Acetaminophen; Complete Time: 15:45 ma2 12/30 14:19 Order name: ETOH Level; Complete Time: 15:45 ma2 12/30 14:19 Order name: Ptt, Activated; Complete Time: 15:45 ma2 12/30 14:19 Order name: Salicylate; Complete Time: 15:45 ma2 12/30 12:49 Order name: XRAY Chest (1 view); Complete Time: 15:45 ma2 12/30 12:49 Order name: EKG; Complete Time: 12:51 ma2 12/30 12:49 Order name: Cardiac monitoring; Complete Time: 12:55 ma2 12/30 12:49 Order name: EKG - Nurse/Tech; Complete Time: 12:55 ma2 12/30 12:49 Order name: IV Saline Lock; Complete Time: 12:55 ma2 12/30 12:49 Order name: Labs collected and sent; Complete Time: 13:16 ma2 12/30 12:49 Order name: O2 Per Protocol; Complete Time: 12:55 ma2 12/30 12:49 Order name: O2 Sat Monitoring; Complete Time: 12:55 ma2 12/30 12:49 Order name: Urine Dipstick-Ancillary (obtain specimen); Complete Time: 14:24 ma2 Administered Medications: 13:15 Not Given (not available): ZyPREXA 20 mg PO once; please give IV not IM hj 13:21 Drug: HALdol 5 mg Route: IVP; Site: right antecubital; hj 14:21 Follow up: Response: No adverse reaction ss 13:22 Drug: Benadryl 50 mg Route: IVP; Site: right antecubital; hj 14:21 Follow up: Response: No adverse reaction ss 13:22 Drug: Ativan 2 mg Route: IVP; Site: right antecubital; hj 14:21 Follow up: Response: No adverse reaction ss 13:23 Drug: NS 0.9% 1000 ml Route: IV; Rate: 1 bolus; Site: right antecubital; hj 14:21 Follow up: IV Status: Completed infusion; IV Intake: 1000ml ss Disposition: 12/30/18 16:17 Transfer ordered to Psych Facility. Diagnosis is Catatonic schizophrenia. - Reason for transfer: Higher level of care. - Accepting physician is suzanne. - Condition is Stable. - Problem is an acute exacerbation. - Symptoms have improved. Signatures: Dispatcher [employer] EDMS Reji Pfeiffer RN RN Barney Laws MD MD Lyn Sheth MD MD [facility] Cecelia Pulido RN ss Corrections: (The following items were deleted from the chart) 13:21 12:51 Head Brain Wo Cont+CT.RAD.BRZ ordered. EDME EDMS 18:52 16:17 12/30/2018 16:17 Transfer ordered to Psych Facility. Diagnosis is Catatonic hj schizophrenia. Reason for transfer: Higher level of care. Accepting physician is suzanne. Condition is Stable. Problem is an acute exacerbation. Symptoms have improved.
== END 2018-12-30 18:52 ==
LOC: ER 12:22
DX: F20.2 Catatonic schizophrenia (principal); F41.9 Anxiety disorder, unspecified; F32.9 Major depressive disorder, single episode, unspecified; Z88.1 Allergy status to other antibiotic agents
CPT/HCPCS: 36415; 71045; 80048; 80076; 80307; 80320; 80329; 81003; 83735; 83880; 84484; 85025; 85610; 85730; 93005; 96361; 96374; 96375; 99285; J1630; J7030

== ENCOUNTER 2018-12-30 22:18 | Emergency (ER) | payer OTHER ==
--- OUTSIDE RECORDS SUMMARY | 2018-12-30 22:21 | XMS REPORT | Clinical Summary ---
:1980 Author Organization [facility] Address [address] [place] [address] Care Team Providers Name Role Phone Unavailable [...] Taken Blood Pressure 109/79 09/21/2018 4:00 PM TOOL GRINDER Pulse 103 09/21/2018 4:00 PM TOOL GRINDER Temperature 36.4 C (97.5 F) 09/21/2018 11:30 AM TOOL GRINDER Respiratory Rate 20 09/21/2018 4:00 PM TOOL GRINDER Oxygen Saturation 100% 09/21/2018 4:00 PM TOOL GRINDER Inhaled Oxygen Concentration - - Weight 57.6 kg (126 lb 15.8 oz) 09/16/2018 8:01 PM TOOL GRINDER Height 188 cm (6' 2") 09/19/2018 8:00 PM TOOL GRINDER Body Mass Index 16.3 09/16/2018 8:01 PM TOOL GRINDER Plan of Treatment Not on file Procedures Procedure Name Priority Date/Time Associated Comments Diagnosis PHOSPHORUS Routine 09/21/2018 5:35 Results for this AM TOOL GRINDER procedure are in the results section. MAGNESIUM Routine 09/21/2018 5:35 Results for this AM TOOL GRINDER procedure are in the results section. BASIC METABOLIC PANEL Routine 09/21/2018 5:35 Results for this (7) AM TOOL GRINDER procedure are in the results section. PHOSPHORUS Routine 09/20/2018 5:26 Results for this AM TOOL GRINDER procedure are in the results section. MAGNESIUM Routine 09/20/2018 5:26 Results for this AM TOOL GRINDER procedure are in the results section. BASIC METABOLIC PANEL Routine 09/20/2018 5:26 Results for this (7) AM TOOL GRINDER procedure are in the results section. POCT-GLUCOSE METER Routine 09/19/2018 11:44 Results for this AM TOOL GRINDER procedure are in the results section. POCT-GLUCOSE METER Routine 09/19/2018 7:53 Results for this AM TOOL GRINDER procedure are in the results section. PHOSPHORUS Routine 09/19/2018 6:18 Results for this AM TOOL GRINDER procedure are in the results section. MAGNESIUM Routine 09/19/2018 6:18 Results for this AM TOOL GRINDER procedure are in the results section. BASIC METABOLIC PANEL Routine 09/19/2018 6:18 Results for this (7) AM TOOL GRINDER procedure are in the results section. POCT-GLUCOSE METER Routine 09/18/2018 5:44 Results for this PM TOOL GRINDER procedure are in the results section. XR ABDOMEN 1 VIEW STACEY 09/18/2018 4:25 Results for this PM TOOL GRINDER procedure are in the results section. POCT-GLUCOSE METER Routine 09/18/2018 12:09 Results for this PM TOOL GRINDER procedure are in the results section. POCT-GLUCOSE METER Routine 09/18/2018 8:20 Results for this AM TOOL GRINDER procedure are in the results section. PHOSPHORUS Routine 09/18/2018 5:49 Results for this AM TOOL GRINDER procedure are in the results section. MAGNESIUM Routine 09/18/2018 5:49 Results for this AM TOOL GRINDER procedure are in the results section. BASIC METABOLIC PANEL Routine 09/18/2018 5:49 Results for this (7) AM TOOL GRINDER procedure are in the results section. POCT-GLUCOSE METER Routine 09/17/2018 10:23 Results for this PM TOOL GRINDER procedure are in the results section. POCT-GLUCOSE METER Routine 09/17/2018 4:47 Results for this PM TOOL GRINDER procedure are in the results section. POCT-GLUCOSE METER Routine 09/17/2018 11:27 Results for this AM TOOL GRINDER procedure are in the results section. EEG AWAKE AND DROWSY Routine 09/17/2018 11:14 Results for this AM TOOL GRINDER procedure are in the results section. POCT-GLUCOSE METER Routine 09/17/2018 7:22 Results for this AM TOOL GRINDER procedure are in the results section. PREALBUMIN Add-On 09/17/2018 4:24 Results for this AM TOOL GRINDER procedure are in the results section. PHOSPHORUS Routine 09/17/2018 4:24 Results for this AM TOOL GRINDER procedure are in the results section. MAGNESIUM Routine 09/17/2018 4:24 Results for this AM TOOL GRINDER procedure are in the results section. COMPREHENSIVE Routine 09/17/2018 4:24 Results for this METABOLIC PANEL AM TOOL GRINDER procedure are in the results section. VITAMIN B12 AND FOLATE Routine 09/17/2018 4:24 Results for this AM TOOL GRINDER procedure are in the results section. CBC W/PLT COUNT & AUTO Routine 09/17/2018 4:23 Results for this DIFFERENTIAL AM TOOL GRINDER procedure are in the results section. CBC W/PLT COUNT & AUTO Routine 09/17/2018 4:23 Results for this DIFFERENTIAL AM TOOL GRINDER procedure are in the results section. POCT-GLUCOSE METER Routine 09/17/2018 12:55 Results for this AM TOOL GRINDER procedure are in the results section. after 12/29/2017 Results Phosphorus (09/21/2018 5:35 AM TOOL GRINDER)Only the most recent of5 resultswithin the time period is included. Phosphorus 3.3 2.3 - 4.7 mg/dL [facility] Specimen Blood - Arm, Right Performing Organization Address [facility] Cent[facility] Phone Number [address] [address] CENTER Magnesium (09/21/2018 5:35 AM TOOL GRINDER)Only the most recent of5 resultswithin the time period is included. Magnesium 2.1 1.6 - 2.6 mg/dL [facility] Specimen Blood - Arm, Right Performing Organization Address [facility]/Zipcode Phone Number [address] [phone] CENTER Basic Metabolic Panel (09/21/2018 5:35 AM TOOL GRINDER)Only the most recent of4 resultswithin the time period is included. Sodium 142 136 - 145 meq/L [facility] Potassium 4.2 3.5 - 5.1 meq/L [facility] Chloride 110 (H) 98 - 107 meq/L [facility] CO2 27 22 - 29 meq/L [facility] BUN 9 7 - 21 mg/dL [facility] Creatinine 0.78 0.57 - 1.25 mg/dL [facility] Glucose 99 70 - 105 mg/dL [facility] Calcium 9.5 8.4 - 10.2 mg/dL [facility] EGFR 112Comment: ESTIMATED GFR IS mL/min/1.73 sq m [facility] NOT ACCURATE CREATININE [facility] CLEARANCE IN PREDICTING GLOMERULAR FILTRATION RATE. ESTIMATED GFR IS NOT APPLICABLE FOR DIALYSIS PATIENTS. Specimen Blood - Arm, Right Performing Organization Address City/[facility] Centercode Phone Number [address] [phone] CENTER POC-Glucose meter (09/19/2018 11:44 AM TOOL GRINDER)Only the most recent of10 resultswithin the time period is included. POC-Glucose Meter 93Comment: TESTED AT 70 - 110 mg/dL [address] [id number] Specimen Blood Performing Organization Address [facility] Centerconm Phone Number [address] [phone] [place] XR abdomen / KUB 1 view (09/18/2018 4:25 PM TOOL GRINDER) Narrative Performed At FINAL REPORT GE RIS CLINICAL HISTORY: corpak placement TECHNIQUE: Supine abdomen IMPRESSION: The tip of the feeding tube is in the gastric fundus. The partially visualized bowel gas pattern is nonspecific. Signed: John Lopez MD Report Verified Date/Time:09/18/2018 16:35:57 Reading Location: [facility] C013 Consult Reading Room Procedure Note Interface, External Ris In - 09/18/2018 4:38 PM TOOL GRINDER FINAL REPORT CLINICAL HISTORY: corpak placement TECHNIQUE: Supine abdomen IMPRESSION: The tip of the feeding tube is in the gastric fundus. The partially visualized bowel gas pattern is nonspecific. Signed: John Lopez MD Report Verified Date/Time: 09/18/2018 16:35:57 Reading Location: [facility] B1 [id number] Consult Reading Room Performing Organization Address City/State/Zipcode Phone Number [facility] EEG AWAKE AND DROWSY (09/17/2018 11:14 AM TOOL GRINDER) Narrative Performed At Date of EE09/17/18 [facility] DATE OF REPORT: 09/17/18 ACC: [id number] EEG Number: [id number] Test Location: Inpatient Start time: 09/17/18 at 10:51 Stop time: 09/17/18 at 11:14 ICD-10: 21427 CPT Code: R56.9 HISTORY: 37 yo male [...] External Ris In - 09/17/2018 5:16 PM TOOL GRINDER Date of EE09/17/18 DATE OF REPORT: 09/17/18 ACC: [id number] EEG Number: [id number] Test Location: Inpatient Start time: 09/17/18 at 10:51 Stop time: 09/17/18 at 11:14 ICD-10: 00633 CPT Code: R56.9 HISTORY: 37 yo male [...] Oneil MD Attending Neurophysiologist Performing Organization Address [facility] Phone Number GE RIS Vitamin B12 and Folate (09/17/2018 4:24 AM TOOL GRINDER) Vitamin B12 639 213 - 816 pg/mL [facility] Folate 9.7 >=7.0 ng/mL [facility] Specimen Blood Performing Organization Address [facility] Phone Number [facility] MEDICAL [address] [place] [address] CENTER Prealbumin (09/17/2018 4:24 AM TOOL GRINDER) Prealbumin 13 (L) 14 - 45 mg/dL [facility] Specimen Blood Performing Organization Address City/State/Zipcode Phone Number [facility] [address] [place] [address] [place] Comprehensive metabolic panel (09/17/2018 4:24 AM TOOL GRINDER) Protein, Total 6.1 6.0 - 8.3 gm/dL [facility] Albumin 4.1 3.5 - 5.0 g/dL [facility] Alkaline Phosphatase 47 40 - 150 U/L [facility] Total Bilirubin 1.5 (H) 0.2 - 1.2 mg/dL [facility] Sodium 140 136 - 145 meq/L [facility] Potassium 3.7 3.5 - 5.1 meq/L [facility] Chloride 107 98 - 107 meq/L [facility] CO2 25 22 - 29 meq/L [facility] BUN 18 7 - 21 mg/dL [facility] Creatinine 0.78 0.57 - 1.25 mg/dL [facility] Glucose 90 70 - 105 mg/dL [facility] Calcium 9.2 8.4 - 10.2 mg/dL [facility] AST 13 5 - 34 U/L [facility] ALT 12 6 - 55 U/L [facility] EGFR 112Comment: ESTIMATED mL/min/1.[address] [facility] GFR IS NOT ACCURATE [facility] CREATININE CLEARANCE IN PREDICTING GLOMERULAR FILTRATION RATE. ESTIMATED GFR IS NOT APPLICABLE FOR DIALYSIS PATIENTS. Specimen Blood Performing Organization Address City/[facility]/Zipcode Phone Number [facility] [address] [place] [address] [place] CBC with platelet count + automated diff (09/17/2018 4:23 AM TOOL GRINDER) WBC 7.9 3.5 - 10.5 K/L [facility] RBC 4.50 (L) 4.63 - 6.08 M/L [facility] Hemoglobin 14.5 13.7 - 17.5 GM/DL [facility] Hematocrit 40.5 40.1 - 51.0 % [facility] MCV 90.0 79.0 - 92.2 fL [facility] MCH 32.2 25.7 - 32.2 pg [facility] MCHC 35.8 32.3 - 36.5 GM/DL [facility] RDW 11.8 11.6 - 14.4 % [facility] Platelets 152 150 - 450 K/CU MM [facility] MPV 12.7 (H) 9.4 - 12.4 fL [facility] nRBC 0 0 - 0 /100 WBC [facility] % Neutros 66 % [facility] % Lymphs 14 % [facility] % Monos 5 % [facility] % Eos 14 % [facility] % Baso 1 % [facility] # Neutros 5.23 1.78 - 5.38 K/L [facility] # Lymphs 1.07 (L) 1.32 - 3.57 K/L [facility] # Monos 0.39 0.30 - 0.82 K/L [facility] # Eos 1.09 (H) 0.04 - 0.54 K/L [facility] # Baso 0.07 0.01 - 0.08 K/L [facility] Immature Granulocytes-Relative 0 0 - 1 % [facility] Specimen Blood Performing Organization Address City/State/Zipcode Phone Number [facility] [address] [place] [address] CENTER after 12/29/2017 Insurance Payer Benefit Plan / Group Subscriber ID Type Phone Address [employer] - MGD CARE CIG[employer] HMO/POS/OPEN ACCESS xxxxxxxxxxx HMO/POS [employer] - COMMERCIAL CIGNA INDEMNITY xxxxxxxxxxx Comm Advance Directives For more information, please contact:[address] [phone] Code Status Date Activated Date Inactivated Comments Full Code 09/16/2018 6:55 PM This code status was determined by: Patient
--- OUTSIDE RECORDS SUMMARY | 2018-12-30 22:21 | XMS REPORT ---
:1980 [facility] Address [address] [place] [id number] Care Team Providers Name Role Phone CEDRIC SCHULTZ Unavailable Unavailable Problems This patient has no known problems. Allergies, Adverse Reactions, Alerts This patient has no known allergies or adverse reactions. Medications This patient has no known medications. Results Test Description Test Time Test Comments Text Results Atomic Results Result Comments PHOSPHORUS 2018-09-21 06:18:00 Test Item Value Reference Range Comments PHOSPHORUS (BEAKER) (test ewvp=842) 3.3 mg/dL 2.3-4.7 [id number] 06:18:00 Test Item Value Reference Range Comments MAGNESIUM (BEAKER) (test zvxm=128) 2.1 mg/dL 1.6-2.6 BASIC METABOLIC [id number] 06:18:00 Test Item Value Reference Range Comments SODIUM (BEAKER) (test 142 meq/L 136-145 uyjp=744) POTASSIUM (BEAKER) (test 4.2 meq/L 3.5-5.1 czzq=420) CHLORIDE (BEAKER) (test 110 meq/L 98-107 tjbu=355) CO2 (BEAKER) (test 27 meq/L 22-29 xcpu=774) BLOOD UREA NITROGEN 9 mg/dL 7-21 (BEAKER) (test ciel=053) CREATININE (BEAKER) (test 0.78 mg/dL 0.57-1.25 zzzh=981) GLUCOSE RANDOM (BEAKER) 99 mg/dL 70-105 (test ocgu=634) CALCIUM (BEAKER) (test 9.5 mg/dL 8.4-10.2 medr=040) EGFR (BEAKER) (test 112 mL/min/1.73 sq m ESTIMATED GFR IS NOT pimk=1673) ACCURATE CREATININE CLEARANCE IN PREDICTING GLOMERULAR FILTRATION RATE. ESTIMATED GFR IS NOT APPLICABLE FOR DIALYSIS PATIENTS. [id number] 06:54:00 Test Item Value Reference Range Comments PHOSPHORUS (BEAKER) (test ahah=385) 3.0 mg/dL 2.3-4.7 [id number] 06:54:00 Test Item Value Reference Range Comments MAGNESIUM (BEAKER) (test bxne=118) 2.1 mg/dL 1.6-2.6 BASIC METABOLIC [id number] 06:54:00 Test Item Value Reference Range Comments SODIUM (BEAKER) (test 140 meq/L 136-145 detq=320) POTASSIUM (BEAKER) (test 3.6 meq/L 3.5-5.1 gatu=027) CHLORIDE (BEAKER) (test 108 meq/L 98-107 zjic=940) CO2 (BEAKER) (test 27 meq/L 22-29 xayz=064) BLOOD UREA NITROGEN 11 mg/dL 7-21 (BEAKER) (test suca=917) CREATININE (BEAKER) (test 0.79 mg/dL 0.57-1.25 zujx=838) GLUCOSE RANDOM (BEAKER) 100 mg/dL 70-105 (test ljrb=250) CALCIUM (BEAKER) (test 9.1 mg/dL 8.4-10.2 ybdx=126) EGFR (BEAKER) (test 110 mL/min/1.73 sq m ESTIMATED GFR IS NOT seru=7666) ACCURATE CREATININE CLEARANCE IN PREDICTING GLOMERULAR FILTRATION RATE. ESTIMATED GFR IS NOT APPLICABLE FOR DIALYSIS PATIENTS. POCT-GLUCOSE [id number] 11:46:00 Test Item Value Reference Range Comments POC-GLUCOSE METER (BEAKER) 93 mg/dL 70-110 TESTED AT [address] (test wylj=1014) [facility] [address] POCT-GLUCOSE [id number] 08:21:00 Test Item Value Reference Range Comments POC-GLUCOSE METER (BEAKER) 98 mg/dL 70-110 TESTED AT [address] (test fnkd=1301) [facility] [address] [id number] 07:14:00 Test Item Value Reference Range Comments PHOSPHORUS (BEAKER) (test gqlp=558) 3.4 mg/dL 2.3-4.7 [id number] 07:14:00 Test Item Value Reference Range Comments MAGNESIUM (BEAKER) (test otik=322) 2.1 mg/dL 1.6-2.6 BASIC METABOLIC [id number] 07:14:00 Test Item Value Reference Range Comments SODIUM (BEAKER) (test 139 meq/L 136-145 hlrs=248) POTASSIUM (BEAKER) (test 3.6 meq/L 3.5-5.1 hrbb=866) CHLORIDE (BEAKER) (test 107 meq/L 98-107 ykaf=065) CO2 (BEAKER) (test 23 meq/L 22-29 czql=921) BLOOD UREA NITROGEN 9 mg/dL 7-21 (BEAKER) (test zqtz=952) CREATININE (BEAKER) (test 0.77 mg/dL 0.57-1.25 aodw=153) GLUCOSE RANDOM (BEAKER) 97 mg/dL 70-105 (test tekc=365) CALCIUM (BEAKER) (test 9.2 mg/dL 8.4-10.2 hvto=904) EGFR (BEAKER) (test 114 mL/min/1.73 sq m ESTIMATED GFR IS NOT gcyp=5623) ACCURATE CREATININE CLEARANCE IN PREDICTING GLOMERULAR FILTRATION RATE. ESTIMATED GFR IS NOT APPLICABLE FOR DIALYSIS PATIENTS. POCT-GLUCOSE [id number] 18:17:00 Test Item Value Reference Range Comments POC-GLUCOSE METER (BEAKER) 109 mg/dL 70-110 TESTED AT [address] (test jilj=0358) [place] [address] RAD, ABDOMEN/KUB, 1 VIEW [id number] 16:35:00Reason for exam:->corpack placementFINAL REPORT CLINICAL HISTORY: corpak placement TECHNIQUE: Supine abdomen IMPRESSION: The tip of the feeding tube is in the gastric fundus. The partially visualized bowel gas pattern is nonspecific. Signed: John Lopez MDReport Verified Date/Time: 09/18/2018 16:35:57 Reading Location: [facility] C013W Consult Reading Room POCT-GLUCOSE [id number] 12:55:00 Test Item Value Reference Range Comments POC-GLUCOSE METER (BEAKER) 105 mg/dL 70-110 TESTED AT [place] [id number] [facility] (test rydm=9701) [place] [id number] POCT-GLUCOSE [id number] 08:46:00 Test Item Value Reference Range Comments POC-GLUCOSE METER (BEAKER) 107 mg/dL 70-110 TESTED AT [address] (test ygss=9398) [facility] [address] [id number] 07:01:00 Test Item Value Reference Range Comments PHOSPHORUS (BEAKER) (test fkqj=966) 3.0 mg/dL 2.3-4.7 [id number] 07:01:00 Test Item Value Reference Range Comments MAGNESIUM (BEAKER) (test odmq=204) 1.9 mg/dL 1.6-2.6 BASIC METABOLIC [id number] 07:01:00 Test Item Value Reference Range Comments SODIUM (BEAKER) (test 140 meq/L 136-145 qpqu=977) POTASSIUM (BEAKER) (test 3.6 meq/L 3.5-5.1 yryn=414) CHLORIDE (BEAKER) (test 108 meq/L 98-107 bfyo=414) CO2 (BEAKER) (test 26 meq/L 22-29 yacg=260) BLOOD UREA NITROGEN 11 mg/dL 7-21 (BEAKER) (test qnlc=794) CREATININE (BEAKER) (test 0.82 mg/dL 0.57-1.25 fszk=555) GLUCOSE RANDOM (BEAKER) 97 mg/dL 70-105 (test pjnx=028) CALCIUM (BEAKER) (test 9.1 mg/dL 8.4-10.2 lopj=442) EGFR (BEAKER) (test 106 mL/min/1.73 sq m ESTIMATED GFR IS NOT hwjd=7974) ACCURATE CREATININE CLEARANCE IN PREDICTING GLOMERULAR FILTRATION RATE. ESTIMATED GFR IS NOT APPLICABLE FOR DIALYSIS PATIENTS. POCT-GLUCOSE [id number] 22:25:00 Test Item Value Reference Range Comments POC-GLUCOSE METER (BEAKER) 101 mg/dL 70-110 TESTED AT [address] (test fnpr=0403) [facility] [address] EEG AWAKE AND [id number] 17:16:00Reason for exam:->AMS, facial twitchingDate of EE09/17/18 DATE OF REPORT: 09/17/18 ACC: [id number] EEG Number : [id number] Test Location: Inpatient Start time: 09/17/18 at 10:51 Stop time: 11/ 20/18 at 11:14 ICD-10: 42675 CPT Code: R56.9 HISTORY: 37 yo male [...] MD Attending Neurophysiologist Electronically signed by: BRUNA ONEIL MD on 2017 05:16 PMPOCT-GLUCOSE [id number] 16:58:00 Test Item Value Reference Range Comments POC-GLUCOSE METER (BEAKER) 87 mg/dL 70-110 TESTED AT [address] (test zyhb=0880) [facility] [address] POCT-GLUCOSE [id number] 11:42:00 Test Item Value Reference Range Comments POC-GLUCOSE METER (BEAKER) 98 mg/dL 70-110 TESTED AT [address] (test irdu=4126) [facility] [address] [id number] 11:20:00 Test Item Value Reference Range Comments PREALBUMIN (BEAKER) (test fxlb=796) 13 mg/dL 14-45 POCT-GLUCOSE [id number] 08:02:00 Test Item Value Reference Range Comments POC-GLUCOSE METER (BEAKER) 81 mg/dL 70-110 TESTED AT [facility] [address] (test qlrb=7919) [facility] [address] VITAMIN B12 AND [id number] 05:24:00 Test Item Value Reference Range Comments VITAMIN B12 (BEAKER) (test evbs=941) 639 pg/mL 213-816 FOLATE (BEAKER) (test jecj=654) 9.7 ng/mL >=7.0 [id number] 05:04:00 Test Item Value Reference Range Comments PHOSPHORUS (BEAKER) (test lgbe=019) 3.1 mg/dL 2.3-4.7 [id number] 05:04:00 Test Item Value Reference Range Comments MAGNESIUM (BEAKER) (test psnt=552) 2.1 mg/dL 1.6-2.6 COMPREHENSIVE METABOLIC [id number] 05:04:00 Test Item Value Reference Range Comments TOTAL PROTEIN (BEAKER) 6.1 gm/dL 6.0-8.3 (test galb=365) ALBUMIN (BEAKER) (test 4.1 g/dL 3.5-5.0 nygp=8377) ALKALINE PHOSPHATASE 47 U/L 40-150 (BEAKER) (test ubmj=378) BILIRUBIN TOTAL (BEAKER) 1.5 mg/dL 0.2-1.2 (test qqaf=415) SODIUM (BEAKER) (test 140 meq/L 136-145 ymot=291) POTASSIUM (BEAKER) (test 3.7 meq/L 3.5-5.1 bxkm=436) CHLORIDE (BEAKER) (test 107 meq/L 98-107 lahd=311) CO2 (BEAKER) (test 25 meq/L 22-29 ajdv=556) BLOOD UREA NITROGEN 18 mg/dL 7-21 (BEAKER) (test svbm=760) CREATININE (BEAKER) (test 0.78 mg/dL 0.57-1.25 fzvu=869) GLUCOSE RANDOM (BEAKER) 90 mg/dL 70-105 (test xsss=273) CALCIUM (BEAKER) (test 9.2 mg/dL 8.4-10.2 mipx=909) AST (SGOT) (BEAKER) (test 13 U/L 5-34 uthv=615) ALT (SGPT) (BEAKER) (test 12 U/L 6-55 yzjt=686) EGFR (BEAKER) (test 112 mL/min/1.73 sq ESTIMATED GFR IS NOT kaxb=6344) m ACCURATE CREATININE CLEARANCE IN PREDICTING GLOMERULAR FILTRATION RATE. ESTIMATED GFR IS NOT APPLICABLE FOR DIALYSIS PATIENTS. CBC W/PLT COUNT & AUTO [id number] 04:57:00 Test Item Value Reference Range Comments WHITE BLOOD CELL COUNT (BEAKER) (test qeby=499) 7.9 K/ L 3.5-10.5 RED BLOOD CELL COUNT (BEAKER) (test vnch=923) 4.50 M/ L 4.63-6.08 HEMOGLOBIN (BEAKER) (test ijox=234) 14.5 GM/DL 13.7-17.5 HEMATOCRIT (BEAKER) (test pquy=089) 40.5 % 40.1-51.0 MEAN CORPUSCULAR VOLUME (BEAKER) (test wjvw=707) 90.0 fL 79.0-92.2 MEAN CORPUSCULAR HEMOGLOBIN (BEAKER) (test 32.2 pg 25.7-32.2 nkfu=407) MEAN CORPUSCULAR HEMOGLOBIN CONC (BEAKER) (test 35.8 GM/DL 32.3-36.5 kifb=633) RED CELL DISTRIBUTION WIDTH (BEAKER) (test 11.8 % 11.6-14.4 qydf=774) PLATELET COUNT (BEAKER) (test qukz=819) 152 K/CU MM 150-450 MEAN PLATELET VOLUME (BEAKER) (test wfgl=964) 12.7 fL 9.4-12.4 NUCLEATED RED BLOOD CELLS (BEAKER) (test 0 /100 WBC 0-0 tnqh=326) NEUTROPHILS RELATIVE PERCENT (BEAKER) (test 66 % ssii=060) LYMPHOCYTES RELATIVE PERCENT (BEAKER) (test 14 % lhsn=264) MONOCYTES RELATIVE PERCENT (BEAKER) (test 5 % eknh=156) EOSINOPHILS RELATIVE PERCENT (BEAKER) (test 14 % mirx=116) BASOPHILS RELATIVE PERCENT (BEAKER) (test 1 % ltwg=493) NEUTROPHILS ABSOLUTE COUNT (BEAKER) (test 5.23 K/ L 1.78-5.38 cink=603) LYMPHOCYTES ABSOLUTE COUNT (BEAKER) (test 1.07 K/ L 1.32-3.57 mkgs=775) MONOCYTES ABSOLUTE COUNT (BEAKER) (test 0.39 K/ L 0.30-0.82 weta=859) EOSINOPHILS ABSOLUTE COUNT (BEAKER) (test 1.09 K/ L 0.04-0.54 wasi=985) BASOPHILS ABSOLUTE COUNT (BEAKER) (test 0.07 K/ L 0.01-0.08 ujtz=550) IMMATURE GRANULOCYTES-RELATIVE PERCENT (BEAKER) 0 % 0-1 (test cktv=5952) POCT-GLUCOSE [id number] 00:57:00 Test Item Value Reference Range Comments POC-GLUCOSE METER (BEAKER) 85 mg/dL 70-110 TESTED AT [facility] [address] (test eedo=5518) [facility] [address]
--- NOTE | 2018-12-30 23:22 | ER ---
Nurse's Notes [facility] Name: Jimbo Ridley Age: 38 yrs Sex: Male : 1980 Arrival Date: 12/30/2018 Time: 22:21 Bed 17 Private MD: Diagnosis: Major depressive disorder, recurrent Presentation: 12/30 22:27 Presenting complaint: EMS states: Pt was rejected by [facility] for being in a ed1 catatonic state and not able to complete his ADL's. Transition of care: Pt was in care of [facility]. Onset of symptoms was December 30, 2018. Risk Assessment: Do you want to hurt yourself or someone else? Patient reports no desire to harm self or others. Initial Sepsis Screen: Does the patient meet any 2 criteria? No. Patient's initial sepsis screen is negative. Does the patient have a suspected source of infection? No. Patient's initial sepsis screen is negative. Care prior to arrival: None. 22:27 Method Of Arrival: EMS: [facility] ed1 22:27 Acuity: ARIANNE 2 ed1 Triage Assessment: 22:38 General: Appears in no apparent distress. Behavior is flat. Pain: Denies pain. EENT: No ed1 signs and/or symptoms were reported regarding the EENT system. Neuro: Level of Consciousness is awake, obeys commands, Oriented to person. Cardiovascular: Denies chest pain, Heart tones S1 S2 present. Respiratory: Airway is patent Respiratory effort is even, unlabored, Respiratory pattern is regular, symmetrical, Breath sounds are clear bilaterally. GI: No signs and/or symptoms were reported involving the gastrointestinal system. : No signs and/or symptoms were reported regarding the genitourinary system. Derm: Skin is intact, is healthy with good turgor, Skin is dry, Skin is normal, Skin temperature is warm. Musculoskeletal: Circulation, motion, and sensation intact. Historical: - Allergies: 22:38 Bactrim; ed1 - Home Meds: 22:38 mirtazapine 15 mg Oral TbDL 1 tab once daily [Active]; quetiapine 100 mg Oral tab 1 tab ed1 nightly [Active]; venlafaxine 150 mg Oral cp24 2 cap once daily [Active]; - PMHx: 22:38 ANOREXIA; Depression; ed1 - PSHx: 22:38 None; ed1 - Immunization history:: Adult Immunizations up to date. - Social history:: Smoking status: Patient/guardian denies using tobacco. - Ebola Screening: : Patient negative for fever greater than or equal to 101.5 degrees Fahrenheit, and additional compatible Ebola Virus Disease symptoms Patient denies exposure to infectious person Patient denies travel to an Ebola-affected area in the 21 days before illness onset No symptoms or risks identified at this time. - Family history:: not pertinent. Screenin:15 Abuse screen: Denies threats or abuse. Denies injuries from another. Nutritional ed1 screening: No deficits noted. Tuberculosis screening: No symptoms or risk factors identified. Fall Risk None identified. Assessment: 23:15 General: See triage assessment. Report given to DEONTE Forrester at [facility].. ed1 23:16 Reassessment: Dr. Asher at bedside. Pt awake, alert, and speaking. Pt able to answer ed1 questions appropriately. Psych: 22:36 Subjective: Patient's mood is sad, Delusions are denied, Hallucinations are denied. ed1 Objective: Patient is cooperative, Speech is soft, Affect is flat. Interventions: Removed personal items and placed in bag. Patient placed in hospital gown. Suicide Risk Assessment: Sad Person Scale: Sex of patient: Male: Score 1 point. Age of patient: Score 0 point if patient falls outside of specified age parameters. Depression: Score 1 point if signs of depression are present. Previous Attempt: Score 0 point if patient has not previously attempted suicide. Substance Abuse: Score 0 point if patient does not abuse alcohol or drugs. Rational Thinking: Score 0 point if patient has rational thinking. Social Support: Score 0 if social support is present/available. Organized Plan: Score 0 if patient did not have an organized plan in place. Relationship: Score 1 point if patient is , , , or for a single male Chronic Sickness: Score 0 point if patient does not have a chronic illness, debilitating, or severe disorder. TOTAL POINTS: If total points are 3-4, proposed clinical action is close follow-up/consider hospitalization. Safety Checks: Personal items have been removed. Door is open. Visitors are present. Pt denies substance abuse. Commitment: Patient will be a voluntary commitment. Vital Signs: 22:38 BP 121 / 70; Pulse 72; Resp 18; Temp 98.2(O); Pulse Ox 100% on R/A; Pain 0/10; ed1 23:18 BP 119 / 69; Pulse 70; Resp 17; Pulse Ox 100% on R/A; Pain 0/10; ed1 ED Course: 22:21 Patient arrived in ED. ds1 22:27 Sneha Winchester, RN is Primary Nurse. ed1 22:30 Harris Asher MD is Attending Physician. [facility] 22:36 Triage completed. ed1 22:38 Arm band placed on right wrist. ed1 22:54 Inserted saline lock: 20 gauge in left antecubital area, using aseptic technique. mt 23:15 Patient has correct armband on for positive identification. ed1 23:15 No provider procedures requiring assistance completed. ed1 23:27 IV discontinued, intact, bleeding controlled, No redness/swelling at site. Pressure ed1 dressing applied. Administered Medications: 23:19 Not Given (Patient Refused): NS 0.9% 500 ml IV at bolus once ed1 Outcome: 23:21 Discharge ordered by . [facility] 23:27 Discharged to home ambulatory, with family. ed1 23:27 Condition: good 23:27 Discharge instructions given to patient, family, Instructed on discharge instructions, follow up and referral plans. Demonstrated understanding of instructions, follow-up care. 23:30 Patient left the ED. ed1 Signatures: Harris Asher MD MD cha Sanford, Demi ds1 Sneah Winchester, DEONTE RN ed1 Irasema Frias pa
--- NOTE | 2018-12-30 23:22 | EDPHYS ---
Physician Documentation [facility] Name: Jimbo Ridley Age: 38 yrs Sex: Male : 1980 Arrival Date: 12/30/2018 Time: 22:21 Bed 17 Private MD: ED Physician Harris Asher HPI: 12/30 23:16 This 38 yrs old Male presents to ER via EMS with complaints of Psych Problem. karol 23:16 The patient presents to the emergency department with depression. Onset: The karol symptoms/episode began/occurred 2 day(s) ago. Past psychiatric history: Prior diagnosis: depression. Associated signs and symptoms: The patient has no apparent associated signs or symptoms. Severity of symptoms: At their worst the symptoms were moderate in the emergency department the symptoms have improved. The patient has experienced similar episodes in the past, multiple times. Historical: - Allergies: 22:38 Bactrim; ed1 - Home Meds: 22:38 mirtazapine 15 mg Oral TbDL 1 tab once daily [Active]; quetiapine 100 mg Oral tab 1 tab ed1 nightly [Active]; venlafaxine 150 mg Oral cp24 2 cap once daily [Active]; - PMHx: 22:38 ANOREXIA; Depression; ed1 - PSHx: 22:38 None; ed1 - Immunization history:: Adult Immunizations up to date. - Social history:: Smoking status: Patient/guardian denies using tobacco. - Ebola Screening: : Patient negative for fever greater than or equal to 101.5 degrees Fahrenheit, and additional compatible Ebola Virus Disease symptoms Patient denies exposure to infectious person Patient denies travel to an Ebola-affected area in the 21 days before illness onset No symptoms or risks identified at this time. - Family history:: not pertinent. ROS: 23:16 Constitutional: Negative for fever, chills, and weight loss, Eyes: Negative for injury, karol pain, redness, and discharge, ENT: Negative for injury, pain, and discharge, Neck: Negative for injury, pain, and swelling, Cardiovascular: Negative for chest pain, palpitations, and edema, Respiratory: Negative for shortness of breath, cough, wheezing, and pleuritic chest pain, Abdomen/GI: Negative for abdominal pain, nausea, vomiting, diarrhea, and constipation, Back: Negative for injury and pain, : Negative for injury, bleeding, discharge, and swelling, MS/Extremity: Negative for injury and deformity, Skin: Negative for injury, rash, and discoloration, Neuro: Negative for headache, weakness, numbness, tingling, and seizure, Allergy/Immunology: Negative for hives, rash, and allergies, Endocrine: Negative for neck swelling, polydipsia, polyuria, polyphagia, and marked weight changes, Hematologic/Lymphatic: Negative for swollen nodes, abnormal bleeding, and unusual bruising. 23:16 Psych: Positive for anxiety, depression. Exam: 23:16 Constitutional: This is a well developed, well nourished patient who is awake, alert, karol and in no acute distress. Head/Face: Normocephalic, atraumatic. Eyes: Pupils equal round and reactive to light, extra-ocular motions intact. Lids and lashes normal. Conjunctiva and sclera are non-icteric and not injected. Cornea within normal limits. Periorbital areas with no swelling, redness, or edema. ENT: Nares patent. No nasal discharge, no septal abnormalities noted. Tympanic membranes are normal and external auditory canals are clear. Oropharynx with no redness, swelling, or masses, exudates, or evidence of obstruction, uvula midline. Mucous membranes moist. Neck: Trachea midline, no thyromegaly or masses palpated, and no cervical lymphadenopathy. Supple, full range of motion without nuchal rigidity, or vertebral point tenderness. No Meningismus. Chest/axilla: Normal chest wall appearance and motion. Nontender with no deformity. No lesions are appreciated. Cardiovascular: Regular rate and rhythm with a normal S1 and S2. No gallops, murmurs, or rubs. Normal PMI, no JVD. No pulse deficits. Respiratory: Lungs have equal breath sounds bilaterally, clear to auscultation and percussion. No rales, rhonchi or wheezes noted. No increased work of breathing, no retractions or nasal flaring. Abdomen/GI: Soft, non-tender, with normal bowel sounds. No distension or tympany. No guarding or rebound. No evidence of tenderness throughout. Back: No spinal tenderness. No costovertebral tenderness. Full range of motion. Male : Normal genitalia with no discharge or lesions. Skin: Warm, dry with normal turgor. Normal color with no rashes, no lesions, and no evidence of cellulitis. MS/ Extremity: Pulses equal, no cyanosis. Neurovascular intact. Full, normal range of motion. Neuro: Awake and alert, GCS 15, oriented to person, place, time, and situation. Cranial nerves II-XII grossly intact. Motor strength 5/5 in all extremities. Sensory grossly intact. Cerebellar exam normal. Normal gait. Psych: Awake, alert, with orientation to person, place and time. Behavior, mood, and affect are within normal limits. 23:16 Psych: Behavior/mood is pleasant, cooperative, Affect is calm, Oriented to person, place, time, Patient has no thoughts/intents to harm self or others. Judgement / Insight is normal. Memory is normal. Delusions/hallucinations are not present. Vital Signs: 22:38 BP 121 / 70; Pulse 72; Resp 18; Temp 98.2(O); Pulse Ox 100% on R/A; Pain 0/10; ed1 23:18 BP 119 / 69; Pulse 70; Resp 17; Pulse Ox 100% on R/A; Pain 0/10; ed1 MDM: 22:30 Patient medically screened. [facility] 23:20 Data reviewed: vital signs, nurses notes, lab test result(s), EKG. [facility] 12/30 22:31 Order name: EKG - Nurse/Tech; Complete Time: 22:55 [facility] 12/30 22:31 Order name: IV Saline Lock; Complete Time: 22:55 [facility] 12/30 22:31 Order name: Labs collected and sent; Complete Time: 22:55 [facility] 12/30 22:31 Order name: Urine Dipstick-Ancillary (obtain specimen); Complete Time: 22:55 [facility] Administered Medications: 23:19 Not Given (Patient Refused): NS 0.9% 500 ml IV at bolus once ed1 Disposition: 12/30/18 23:21 Discharged to Home. Impression: Major depressive disorder, recurrent. - Condition is Stable. - Discharge Instructions: Major Depressive Disorder, Jiyp-xi-Aiid, Major Depressive Disorder. - Medication Reconciliation Form, Thank You Letter, Antibiotic Education, Prescription Opioid Use form. - Follow up: Private Physician; When: 2 - 3 days; Reason: Recheck today's complaints, Continuance of care, Re-evaluation by your physician. - Problem is new. - Symptoms have improved. Signatures: Dispatcher [employer] EDMS Harris Asher MD MD cha Riggs, Erika, RN RN ed1 Corrections: (The following items were deleted from the chart) 22:47 22:31 Acetaminophen Level ordered. EDMS EDMS 22:47 22:32 BASIC METABOLIC PANEL+C.LAB.BRZ ordered. EDMS EDMS 22:47 22:32 HEPATIC FUNCTION+C.LAB.BRZ ordered. EDMS EDMS 22:47 22:32 THYROID STIMULAT HORMONE+C.LAB.BRZ ordered. EDMS EDMS 22:48 22:32 CBC+H.LAB.BRZ ordered. EDMS EDMS 22:48 22:32 ETHANOL+C.LAB.BRZ ordered. EDMS EDMS 22:48 22:32 PROTIME (+INR)+COAG.LAB.BRZ ordered. EDMS EDMS 22:48 22:32 PTT, ACTIVATED+COAG.LAB.BRZ ordered. EDMS EDMS 22:48 22:32 SALICYLATE+C.LAB.BRZ ordered. EDMS EDMS 22:49 22:32 URINE DRUG SCREEN+CHEM UR.LAB.BRZ ordered. EDMS EDMS 23:30 23:21 12/30/2018 23:21 Discharged to Home. Impression: Major depressive disorder, ed1 recurrent. Condition is Stable. Forms are Medication Reconciliation Form, Thank You Letter, Antibiotic Education, Prescription Opioid Use. Follow up: Private Physician; When: 2 - 3 days; Reason: Recheck today's complaints, Continuance of care, Re-evaluation by your physician. Problem is new. Symptoms have improved. karol
== END 2018-12-30 23:30 | disposition home or self-care (01) ==
LOC: ER 22:18
DX: F33.9 Major depressive disorder, recurrent, unspecified (principal); Z88.1 Allergy status to other antibiotic agents
CPT/HCPCS: 99284